=== PATIENT | female | born 1940 | race Caucasian/White ===

== ENCOUNTER 2019-06-02 13:54 | Inpatient (IN) ==
--- NOTE | 2019-06-02 15:51 | Diag Imaging Result Doc PS360 ---
EXAM: CHEST-1 VIEW INDICATION: COUGH WITH POSSIBLE PNA TECHNIQUE: One view COMPARISON: 05/27/2019 FINDINGS: The lungs are grossly clear. There is no discrete pleural fluid collection or pneumothorax. There is stable cardiomegaly. The central vasculature is perhaps mildly prominent suggesting possible mild pulmonary venous congestion. IMPRESSION: Cardiomegaly and mildly prominent central vasculature suggesting possible mild pulmonary venous congestion. No definite acute pathology, otherwise. Electronically signed by Chintan Avelar 06/02/2019 3:49 PM
--- NOTE | 2019-06-02 16:07 | EKG Report ---
Test Performed on : 06/02/2019 2:35:50 PM Test Reason : irregular rythm Blood Pressure : / mmHG Vent. Rate : 066 BPM Atrial Rate : 066 BPM P-R Int : 246 ms QRS Dur : 130 ms QT Int : 428 ms P-R-T Axes : 032 210 041 degrees QTc Int : 448 ms Sinus rhythm. with 1st degree AV block. Right superior axis deviation Nonspecific intraventricular block Abnormal ECG When compared with ECG of 23-APR-2012 11:05, premature atrial complexes. are no longer present DE interval has increased Questionable change in QRS duration Unconfirmed Result
[2019-06-02 16:16] LABS: BASO# 0.01 X1000 (0.0-0.2); BASO% 0.1 % (0.0-0.8); EOS# 0.22 X1000 (0.0-0.7); EOS% 3.2 % (0.0-10.0); HEMATOCRIT 34.1 % (37.0-47.0); HEMOGLOBIN 10.7 g/dL (12.0-16.0); IMM GRAN# 0.04 X1000 (0.0-0.04); IMM GRAN% 0.6 % (0.0-0.5); LYMPH% 7.4 % (20.5-51.1); MCH 30.2 PG (27-31); MCHC 31.4 g/dL (33-37); MCV 96.3 FL (81-99); MONO# 0.47 X1000 (0.11-0.59); MONO% 6.9 % (1.7-9.3); MPV 9.7 FL (7.4-10.4); NEUT# 5.56 X1000 (1.4-6.5); NEUT% 81.8 % (42.2-75.2); PLT 216 X1000 (130-400); RBC 3.54 XMIL (4.2-5.4); RDW 12.5 % (11.5-14.5)
[2019-06-02 16:37] LABS: ALB/GLOB RATIO 1.3; ALBUMIN 3.6 g/dL (3.5-5.0); CALCIUM 8.8 mg/dL (8.8-10.2); CREATININE 1.6 mg/dL (0.5-0.9); POTASSIUM 4.6 mmol/L (3.5-5.1); TOTAL BILIRUBIN 0.29 mg/dL (0.20-1.00); TOTAL PROTEIN 6.4 g/dL (6.3-8.3)
--- NOTE | 2019-06-02 21:57 | PROVIDER DOCUMENTATION ---
This chart was entered by Kami Avelar Scribe, acting as scribe for Lorin Tamez MD. HPI-Respiratory General - General Chief Complaint: Shortness of Breath Stated Complaint: IRREGULAR BP Time Seen by Provider: 06/02/19 20:02 Source: patient Allergies/Adverse Reactions: Patient Allergies Allergy/AdvReac Type Severity Reaction Status Date / Time ciprofloxacin [From Cipro] Allergy Unknown Verified 06/02/19 23:58 nitrofurantoin Allergy Unknown Verified 06/02/19 23:58 [From Macrobid] Home Medications: Home Medication List Medication Instructions Recorded Confirmed Last Taken Type Apixaban [Eliquis] 5 mg PO BID 06/02/19 06/02/19 06/01/19 08:00 History CefDINIR [Omnicef] 300 mg PO DAILY 06/02/19 06/02/19 Unknown History Estradiol 10 mcg VAG ORDERED 06/02/19 06/02/19 Unknown History Flecainide Acetate 100 mg PO BID 06/02/19 06/02/19 06/01/19 08:00 History Fluconazole [Diflucan] 150 mg PO DAILY 06/02/19 06/02/19 Unknown History Levothyroxine Sodium 50 mg PO DAILY 06/02/19 06/02/19 Unknown History Losartan/Hctz [Hyzaar 100/12.5 mg 1 tab PO DAILY 06/02/19 06/02/19 Unknown History Tab] Metformin E.r. [Glucophage Xr] 500 mg PO DAILY 06/02/19 06/02/19 Unknown History Montelukast Sodium 10 mg PO DAILY 06/02/19 06/02/19 Unknown History Omeprazole 20 mg PO DAILY 06/02/19 06/02/19 Unknown History Pravastatin Sodium 40 mg PO DAILY 06/02/19 06/02/19 Unknown History Sertraline HCl 50 mg PO DAILY 06/02/19 06/02/19 Unknown History Spironolactone 25 mg PO DAILY 06/02/19 06/02/19 Unknown History Mirabegron [Myrbetriq] 25 mg PO DAILY 06/03/19 06/03/19 06/02/19 History - History of Present Illness-Resp Nature of Presenting Problem: 78 yof c/o cough, runny nose, postnasal drainage, nausea, headache and sob. pt sts is sob intermittent for years but has become worse in last week. pt has been going to dr mondays and tuesdays to receive antibiotic shots. pt sts was sick with similar symptoms in february. pt is afebrile, denies v/d, and cp. Severity in ED: reports: mild Onset/Duration: reports: 1 week ago Timing: reports: still present Exposure: reports: unknown cause Cough Quality/Degree: reports: moderate, productive cough Review of Systems - Adult - REVIEW OF SYSTEMS - ADULT Constitutional: reports: no symptoms reported. denies: chills, fever, fatique Eyes: reports: no symptoms reported Ears, Nose, Mouth & Throat: reports: see HPI, sinus problem (runny nose intermittent, post nasal drainage). denies: ear discharge, ear pain, epistaxis, throat pain, throat swelling Cardiovascular: reports: no symptoms reported. denies: chest pain, edema, ortho pnea, palpitations Respiratory: reports: see HPI, cough, excessive sputum production, shortness of breath, other (tachypnea). denies: hemoptysis, pleurisy, wheezing Gastrointestinal: reports: see HPI, nausea. denies: abdominal pain, diarrhea, vomiting Genitourinary: reports: no symptoms reported Musculoskeletal: reports: no symptoms reported Integumentary: reports: no symptoms reported Neurological: reports: see HPI, headache/migraines. denies: ataxia, dizziness/vertigo, seizure Psychiatric: reports: no symptoms reported Endocrine: reports: no symptoms reported Hematologic/Lymphatic: reports: no symptoms reported Allergic/Immunologic: reports: no symptoms reported All Other Systems: Reviewed and Negative Past History - Adult - PAST MEDICAL HISTORY-ADULT Review of Records: reports: Old Records Reviewed, Nursing Assessment Review, Al dications Reviewed, Social history reviewed & non-contributory. Major Childhood Illnesses: reports: denies history Cardiovascular: reports: HTN, other (loop recorder) Respiratory: reports: denies history Gastrointestinal: reports: GERD Obstetrical/Gynecological: reports: denies history Genitourinary: reports: denies history Musculoskeletal: reports: denies history Neurological: reports: denies history Endocrine/Immune: reports: Diabetes Diabetes Type: Type 2 Other Conditions: reports: denies history - PRIOR SURGERIES/PROCEDURES Surgical/Procedure History: reports: cholecystectomy, , joint replacement (tk) - IMMUNIZATION STATUS Childhood Immunizations: See Nurse Assessment Flu Vaccine: See Nurse Assessment - FAMILY HISTORY Family History: reviewed, not pertinent - SOCIAL HISTORY Smoking: non-smoker Substance Use: none/never Physical Exam-General - PHYSICAL EXAM-ADULT Initial Vital Signs Reviewed: Yes - CONSTITUTIONAL General Appearance: appears well, alert, no apparent distress, obese. negative: lethargic, slow to respond, obtunded - EYES Eyes: PERRL/EOMI, pink conjunctivae - HEAD, EARS, NOSE, MOUTH & THROAT HENMT: normocephalic/atraumatic, moist mucous membranes, normal ENT inspection, TMs normal, pharynx normal, other (sinus tenderness to palp bilat). negative: pharyngeal erythema, tonsillar exudate - NECK Neck: non-tender, full range of motion, supple, normal inspection - RESPIRATORY Respiratory: chest non-tender, lungs clear, normal breath sounds, no pleuratic chest pain, no respiratory distress, no accessory muscle use. negative: respiratory distress, decreased breath sounds, accessory muscle use, wheezing - CARDIOVASCULAR Cardiovascular: normal peripheral pulses, regular rate, rhythm - GASTROINTESTINAL (ABDOMEN) Abdominal Exam: normal bowel sounds, non tender, soft, no organomegaly, no pulsatile mass. negative: rigid, rebound, tenderness - LYMPHATIC Lymphatic: no adenopathy - MUSCULOSKELETAL Back Exam: normal inspection, no CVA tenderness, no vertebral tenderness Extremity: normal range of motion, non-tender, normal gait, normal inspection Peripheral Pulses: radial (R): 2+, radial (L): 2+ - SKIN Integumentary: normal color, normal turgor, warm/dry - NEUROLOGIC Neurologic: grossly normal, no motor/sensory deficits - PSYCHIATRIC Psych/Mental Status: normal mood/affect, normal thought content, normal thought process, oriented x 3 Progress - PLAN OF CARE/RESULTS Progress/Plan/Lab Results: Orders Category Date Time Status Admit - [facility] Routine AdmDCTranf 06/02/19 23:53 Active Activity - Up with Assistance ORDERED Care 06/02/19 23:53 Active Apply Mechanical Device [QM] ORDERED Care 06/02/19 23:53 Active Intake and Output-Strict ORDERED Care 06/02/19 23:53 Active Use ED:PneumoniaAdultSet As Ordered Care 06/02/19 14:47 Completed Vital Signs Order Q 8-HR ASSESS Care 06/02/19 23:53 Active Z-Document. for Tele Applied ORDERED Care 06/02/19 23:53 Completed Heart Healthy Diet Diet 06/02/19 23:54 Active CHEST-1 VIEW [RAD] Stat Exams 06/02/19 14:47 Completed BASIC METABOLIC PANEL [CHEM] Routine Lab 06/03/19 06:40 Completed BLOOD CULTURE [BLDCUL] Stat Lab 06/02/19 16:30 Results CBC WITH DIFF [HEME] Routine Lab 06/03/19 06:40 Completed CBC WITH ELECTRONIC DIFF [HEME] Stat Lab 06/02/19 15:13 Completed COMPREHENSIVE METABOLIC PANEL [CHEM] Stat Lab 06/02/19 15:13 Completed Cardiac Profile [CK PROFILE] [SP CHEM] Stat Lab 06/02/19 21:05 Completed LACTATE, PLASMA [CHEM] Stat Lab 06/02/19 16:30 Completed PRO B-NATRIURETIC PEPTIDE Stat Lab 06/02/19 21:25 Completed TROPONIN T Stat Lab 06/02/19 21:25 Completed Furosemide [Lasix] Med 06/02/19 23:03 Discontinued 40 mg IV NOW ONE Furosemide [Lasix] Med 06/03/19 11:00 Discontinued 40 mg IV Q12H Ondansetron [Zofran] Med 06/02/19 23:53 Active 4 mg IV Q4H PRN PRN Telemetry [OM.EQ] Routine Oth 06/02/19 23:53 Active EKG [EKG] Stat Ther 06/02/19 14:32 Draft Echo Spec/Color Doppler Routine Ther 06/02/19 23:53 Draft Transfer/Admit Order [TRANSFER] Routine Transfer 06/02/19 23:18 Completed Result Diagrams: 06/03/19 06:40 06/03/19 06:40 - EKG 1 Time of EKG reading by physician:: 14:35 EKG Read and Signed by:: Augusto Vu EKG Interpretation (*Must complete 3 of following elements*): Abnormal Rate: 66 Rhythm: SR w/1st degree AV block [place]: right (right superior) QRS: normal [place] Interval: prolonged ST Wave: normal Comments: nonspecific intraventricular block - XRAY 1 XRAY Study: Chest Impression: Abnormal, See EMR Report ( EXAM: CHEST-1 VIEW INDICATION: COUGH WITH POSSIBLE PNA TECHNIQUE: One view COMPARISON: 05/27/2019 FINDINGS: The lungs are grossly clear. There is no discrete pleural fluid collection or pneumothorax. There is stable cardiomegaly. The central vasculature is perhaps mildly prominent suggesting possible mild pulmonary venous congestion. IMPRESSION: Cardiomegaly and mildly prominent central vasculature suggesting possible mild pulmonary venous congestion. No definite acute pathology, otherwise. Electronically signed by Chintan Avelar 06/02/2019 3:49 PM) - CONSULTS/PCP/HOSPITALIST Notification #1 *Consult/PCP/Hospitalist*: Dr. Lizama/ hospitalist Time Discussed: 23:00 Consult Disposition: Admit Departure - Departure Date of Disposition Decision: 06/03/19 Time of Disposition Decision: 00:10 DIAGNOSIS: Dyspnea, CHF (congestive heart failure) Disposition: ADMITTED INPATIENT Certified Medical Emergency: Emergent Condition: Stable - Critical Care Note This patient required my direct & personal management of CC.: No Attestation - Physician/ FABIENNE Attestation Patient care was provided by Advanced Practice Provider:: No The physician spent face to face time with patient:: Yes Advanced Practice Provider documentation review:: Supervising physician onsite and consulted in the evaluation and care of this patient. The physician did have a face to face encounter with the patient. This chart was documented by the indicated scribe, (Kami Avelar, [place]) and accurately reflects the services I performed and decisions made by me, Lorin Tamez MD, as attested by the provider's signature.
[2019-06-02] MEDS ORDERED: LASIX IV ONE (23:03)
[2019-06-03] MEDS: ELIQUIS PO SCH ×3 (01:20→21:49)
[2019-06-03 01:24] LABS: URINE SOURCE CLEAN CATCH
[2019-06-03 02:20] LABS: BILIRUBIN URINE NEGATIVE (NEGATIVE); BLOOD URINE SMALL (NEGATIVE); COLOR STRAW; GLUCOSE URINE NEGATIVE (NEGATIVE); KETONE URINE NEGATIVE (NEGATIVE); LEUKOCYTES URINE NEGATIVE (NEGATIVE); NITRITE URINE NEGATIVE (NEGATIVE); PROTEIN URINE NEGATIVE (NEGATIVE); SP GRAVITY URINE 1.007; TURBIDITY URINE CLEAR (CLEAR); UR EPITHELIAL CELLS <10 /HPF (<10); URINE BACTERIA NEGATIVE /HPF; URINE RBC <10 /HPF (<10); URINE WBC <10 /HPF (<10); UROBILINOGEN URINE NORMAL (NORMAL)
--- NOTE | 2019-06-03 03:33 | EKG Report ---
Test Performed on : 06/02/2019 8:37:11 PM Test Reason : CP Blood Pressure : / mmHG Vent. Rate : 062 BPM Atrial Rate : 062 BPM P-R Int : 216 ms QRS Dur : 114 ms QT Int : 416 ms P-R-T Axes : 101 -13 063 degrees QTc Int : 422 ms Sinus rhythm. with 1st degree AV block. Otherwise normal ECG When compared with ECG of 02-JUN-2019 14:35, (Unconfirmed) Questionable change in QRS duration Unconfirmed Result
[2019-06-03] MEDS: HUMULIN R SUBQ SCH ×4 (06:01→21:50)
--- NOTE | 2019-06-03 06:09 | HISTORY AND PHYSICAL ---
PRIMARY CARE PHYSICIAN: Dr. Campos. CHIEF COMPLAINT: Cough and shortness of breath times several days. HISTORY OF PRESENTING ILLNESS: An 78-year-old female with a history of hypertension, atrial fibrillation diabetes mellitus type 2, and hyperlipidemia, who had presented to emergency department with several days history of worsening shortness of breath. The patient states that she was coughing and not feeling well. She states that with mild exertion she was having difficulty breathing. She apparently was treated for pneumonia not too long ago, however, she stated that she did not have any improvement. The patient was evaluated in the emergency department. She was found to be in heart failure. She was given IV Lasix and she had some improvement. Due to her presenting symptoms, she will require admission for further management. At the time of my examination, patient denied any headache, fever, chills, chest pain, hemoptysis, or melena, but complained of cough and shortness of breath. PAST MEDICAL HISTORY: Includes hypertension, atrial fibrillation, diabetes mellitus type 2, and hyperlipidemia. PAST SURGICAL HISTORY: She has a loop recorder, back surgery, bilateral carpal tunnel surgery, bilateral knee surgery, and cholecystectomy. ALLERGIES: Cipro, Macrobid, codeine and several other medications she does not recall. CURRENT MEDICATIONS: 1. Eliquis 5 mg p.o. b.i.d. 2. Flecainide 100 mg p.o. b.i.d. 3. Losartan HCT 100/12.5 mg p.o. daily. 4. Metformin 500 mg p.o. daily. 5. Omeprazole 20 mg p.o. daily. 6. Pravastatin 40 mg p.o. daily. 7. Sertraline 50 mg p.o. daily. 8. Spironolactone 25 mg p.o. daily. 9. Synthroid 50 mcg p.o. daily. 10. Singular 10 mg p.o. daily. SOCIAL HISTORY: No history of smoking, alcohol or illicit drug use. FAMILY HISTORY: No history of coronary disease. REVIEW OF SYSTEMS: Fourteen point review of systems is as in HPI. Other systems negative. PHYSICAL EXAMINATION: GENERAL: Cooperative, friendly, and elderly female. She is resting more comfortably now. VITAL SIGNS: Temperature 98.2 degrees, pulse 66, respirations 20, and blood pressure 103/53. HEENT: Atraumatic, normocephalic. Extraocular movements intact. PERRLA. NECK: No masses. CHEST: Bibasilar rales. CARDIOVASCULAR: Regular rate and rhythm. ABDOMEN: Soft. Positive bowel sounds. EXTREMITIES: +1 edema. NEUROLOGIC: She is awake, alert, and oriented x3. : No bladder distention. SKIN: Warm. LABORATORIES AND STUDIES: WBC 6.80, hemoglobin 10.7, hematocrit 34.1, and platelets 216,000. Sodium 134, potassium 4.6, chloride 95, CO2 26, BUN is 25, creatinine 1.6, and glucose 126. ProBNP is 1419. Troponin 0.010. Chest x-ray shows cardiomegaly and central vascular congestion suggesting pulmonary congestion. ASSESSMENT: An 78-year-old elderly female with a history of hypertension, atrial fibrillation diabetes mellitus type 2 and hyperlipidemia, who presented to the emergency department with several days history of worsening shortness of breath. She was evaluated in the emergency department. She was found to be in heart failure. She will require admission for further management. 1. Acute congestive heart failure exacerbation, unspecified. 2. Diabetes mellitus type 2. 3. Chronic atrial fibrillation. 4. Hypertension. PLAN: 1. We will admit patient to medical floor with telemetry. 2. We will continue with gentle diuresis. 3. We will consult Cardiology. 4. Schedule echocardiogram. 5. Monitor blood glucose, and put patient on sliding scale insulin regimen. 6. We will restart patient's antiarrhythmic agents and Eliquis for atrial fibrillation. 7. Monitor blood pressure closely. Resume antihypertensive agent. 8. The patient is on Eliquis, and this will suffice for DVT prophylaxis also. 9. We will continue to follow and reassess. Make further recommendations based on patient's clinical course. cc: Sergio Lizama MD
[2019-06-03 07:15] LABS: BASO# 0.01 X1000 (0.0-0.2); BASO% 0.1 % (0.0-0.8); EOS# 0.19 X1000 (0.0-0.7); EOS% 2.8 % (0.0-10.0); HEMATOCRIT 34.2 % (37.0-47.0); HEMOGLOBIN 10.7 g/dL (12.0-16.0); IMM GRAN# 0.04 X1000 (0.0-0.04); IMM GRAN% 0.6 % (0.0-0.5); LYMPH# 0.49 X1000 (1.2-3.4); LYMPH% 7.3 % (20.5-51.1); MCH 29.9 PG (27-31); MCHC 31.3 g/dL (33-37); MCV 95.5 FL (81-99); MONO# 0.54 X1000 (0.11-0.59); MONO% 8.1 % (1.7-9.3); MPV 9.8 FL (7.4-10.4); NEUT# 5.42 X1000 (1.4-6.5); NEUT% 81.1 % (42.2-75.2); PLT 212 X1000 (130-400); RBC 3.58 XMIL (4.2-5.4); RDW 12.5 % (11.5-14.5); WBC 6.69 X1000 (4.8-10.8)
[2019-06-03 07:59] LABS: POTASSIUM 4.5 mmol/L (3.5-5.1)
[2019-06-03 08:00] LABS: CALCIUM 8.8 mg/dL (8.8-10.2); CREATININE 1.6 mg/dL (0.5-0.9)
[2019-06-03] MEDS ORDERED: LASIX IV SCH (11:00)
--- NOTE | 2019-06-03 13:34 | PROGRESS NOTE ---
DATE: 06/03/2019 SUBJECTIVE: This morning Ms. Martinez refers to be doing a little better. She has been having chronic cough associated with some shortness of breath for some time. Upon presenting to the emergency department, she was evaluated. She has been found to be mildly normocytic anemia associated with elevated creatinine and elevated pro B. OBJECTIVE: Vital Signs: Blood pressure is currently 121/48, pulse of 70, respirations is 15, and temperature 98.9 degrees. Patient was saturating 99% on room air. General: Ms. Martinez is an 78- year-old female. She is in bed in no distress. Mucosa is pink and moist. Anicteric. Acyanotic. Neck: Supple. Chest: Good air entry bilaterally with some distant fine crackles posteriorly. Cardiovascular: Regular rate and rhythm. I did not hear any murmurs. No JVD. GI: Abdomen is soft and nontender. Bowel sounds present. Extremities: No pedal edema. There are however, non blanching macular lesions in the lower extremities. LABORATORY DATA: Has been reviewed. Hemoglobin is 10.7. Rest of CBC is normal. Chemistry is also reviewed. Creatinine is 1.6. A chest x-ray which showed cardiomegaly with central vasculature consistent with pulmonary venous. ASSESSMENT: 1. Acute congestive heart failure exacerbation. 2. Diabetes mellitus. 3. Chronic atrial fibrillation currently rate controlled. 4. Hypertension. 5. Chronic cough of unclear etiology presumably related to pulmonary edema. However, etiologies need to be ruled out. We will do a CT scan of the chest to have a better anatomy of the lungs. 6. Renal failure, etiology and chronicity is unknown. We will get a renal ultrasound. cc: Narciso Hinton MD [facility]
--- NOTE | 2019-06-03 16:15 | Diag Imaging Result Doc PS360 ---
EXAM: CHEST-2 VIEWS HISTORY: cough TECHNIQUE: Chest two views COMPARISON: 06/02/2019 and 05/27/2019 FINDINGS: The lungs are well expanded. The heart is mildly enlarged. The vessels are not distended. There are mild increased markings adjacent to the left heart border which remain. There is been considerable improvement compared the prior studies. No pleural effusions. IMPRESSION: Interval improvement Electronically signed by Richardson Resendiz 06/03/2019 4:12 PM
--- NOTE | 2019-06-03 16:20 | CONSULTATION ---
DATE OF CONSULTATION: 06/03/2019 IMPRESSION: 1. Shortness of breath and cough. Etiology not entirely clear. She is presently without signs of pulmonary vascular congestion and is without shortness of breath lying flat on room air. She does have some few scattered wheezes. 2. Paroxysmal atrial fibrillation. She continues in sinus rhythm on flecainide. 3. Negative coronary angiography in 2008. 4. Hypertension. 5. Type 2 diabetes mellitus. 6. Asthma. RECOMMENDATIONS: 1. PA and lateral chest x-ray. 2. Limit diuresis. 3. Discontinue thiazide diuretic and start low-dose diltiazem as tolerated. 4. Follow up echocardiography. 5. Conservative cardiovascular management overall. HISTORY: This 78-year-old white female with past history of paroxysmal atrial fibrillation, asthma, hypertension, type 2 diabetes mellitus, hyperlipidemia and gastroesophageal reflux disease was admitted yesterday with cough and shortness of breath. She relates that she has actually been not feeling well for about 8 weeks or so. She describes symptoms of cough which has been minimally productive. She started to have some shortness of breath. She has been through a round of antibiotics but did not improve. Her symptoms worsened yesterday and she came to the emergency room for evaluation. There has been no chest pain. She had normal coronaries by coronary angiography in 2008 and had negative stress myocardial perfusion study in the spring of last year and echocardiography from the spring last year demonstrated normal left ventricular ejection fraction. PAST MEDICAL HISTORY: 1. Paroxysmal atrial fibrillation. 2. Hypertension. 3. Type 2 diabetes mellitus. 4. Hyperlipidemia. 5. Obstructive sleep apnea. 6. Asthma. 7. Hypothyroidism. 8. Gastroesophageal reflux disease. PAST SURGICAL HISTORY: Includes unspecified back surgery, bilateral carpal tunnel release, unspecified bilateral knee surgeries, cholecystectomy, and tubal ligation. ALLERGIES: She is allergic or intolerant of Cipro, Macrobid and codeine. MEDICATIONS PRIOR TO ADMISSION: As listed. SOCIAL HISTORY: She is and retired. She lives at home. She does not smoke or use alcohol. FAMILY HISTORY: Negative for premature coronary disease. REVIEW OF SYSTEMS: Pulmonary: Noteworthy for minimally productive cough as well as some wheezing and shortness of breath. Gastrointestinal: Negative. Constitutional: Negative. Remainder review of systems negative/noncontributory with 14 total systems reviewed. PHYSICAL EXAMINATION: General: This is a pleasant, older white female in no distress on room air. Vital signs: Blood pressure 100/55, heart rate 67 with ECG monitor showing sinus rhythm. HEENT: Extraocular movements appear intact. Mucous membranes moist. Neck: Supple. Jugular venous distention suggests normal central venous pressure. Auscultation chest reveals a few faint scattered expiratory wheezes. No rales could be appreciated. Cardiac: Reveals a regular rate and rhythm without appreciable murmur or gallop. Abdomen: Soft. Bowel sounds are normal. Extremities: Without edema. Neurologic: Reveals her to be alert and fully oriented. Speech is fluent. Moves all 4 extremities equally well. Skin: Warm, dry. Psychiatric: Reveals mood to be appropriate. DATA: A 12 lead EKG demonstrates sinus rhythm with first degree AV block, right superior axis deviation and nonspecific interventricular conduction delay. LABORATORY DATA: Includes a sodium 136, potassium 4.6, chloride 96, carbon dioxide 24, BUN 26, creatinine 1.6, glucose 114. CPK 40, troponin T less than 0.01. Pro B-natriuretic peptide level 1419. White blood cell count 6.7, hematocrit 34.2, hemoglobin 10.7, platelet count 212,000. cc: Catarino Beverly MD
--- NOTE | 2019-06-03 16:27 | Diag Imaging Result Doc PS360 ---
EXAM: US RENAL 2 (RETROPER) COMPLETE HISTORY: lorie/arf TECHNIQUE: Renal ultrasound COMPARISON: None. FINDINGS: The right kidney measures 9.9 x 3.7 x 4.6 cm. Normal renal echotexture and cortical thickness. No stone or hydronephrosis. No renal mass. The left kidney measures 9.7 x 4.7 x 5.4 cm. Normal renal echotexture and cortical thickness. No renal stone. No hydronephrosis. The urinary bladder is moderately distended and appears normal. Prevoid bladder volume is 121 cc. IMPRESSION: No abnormality identified Electronically signed by Richardson Resendiz 06/03/2019 4:25 PM
--- NOTE | 2019-06-03 16:29 | Diag Imaging Result Doc PS360 ---
EXAM: CT THORAX W/O CONTRAST INDICATION: SOB with chronic cough TECHNIQUE: This exam was performed using automated exposure control, adjustment of mA or kV according to patient size, and/or use of iterative reconstruction technique. COMPARISON: None. FINDINGS: There are focal airspace consolidations involving the left lower lobe at the base, the lingula, and a tiny airspace consolidation involving the right lower lobe consistent with pneumonia. There is no pleural fluid collection and no pneumothorax. There are small shotty mediastinal lymph nodes that are probably reactive. There is no cardiomegaly. Limited views of the upper abdomen are essentially unremarkable. IMPRESSION: Multilobar pneumonia that is worst on the left as described. Electronically signed by Chintan Avelar 06/03/2019 4:27 PM
[2019-06-03] MEDS: ROCEPHIN 1 GM in NS 50 ML IV SCH (18:24)
[2019-06-03] MEDS ORDERED: NS 250 ML ONE (18:34)
[2019-06-03] MEDS: ZITHROMAX 500 MG/NS 500 MG/250 ML IVPB IV SCH (18:59)
--- NOTE | 2019-06-03 19:12 | ECHO REPORT ---
ORDER DATE: 06/02/2019 INDICATION: An 78-year-old female with CHF. REQUESTING PHYSICIAN: Dr. Sergio Lizama. M-MODE MEASUREMENTS: Left ventricle end diastole: 4.7. Left ventricle end systole: 2.6. Posterior wall: 0.9. Interventricular septum: 1.0. Left atrium: 4.2. Aortic diameter: 3.4. SUMMARY OF 2-DIMENSIONAL IMAGIN. Left ventricular function is normal. Ejection fraction appears to be on the order of 65%. There is no wall motion abnormality noted. 2. The right ventricle appears to be grossly normal. 3. The aortic valve has 3 cusps. They open normally. Color flow mapping is unremarkable. 4. The mitral valve shows a mild degree of regurgitation. 5. Pulsed wave Doppler of mitral inflow is normal. 6. Tissue Doppler of septal and lateral mitral annulus averages 6 cm. 7. There is no definite diastolic dysfunction. 8. The left atrium appears to be moderately enlarged. 9. The right atrium is normal. 10.The tricuspid valve shows a mild degree of regurgitation. Pulmonary pressure is estimated at 41 mmHg. 11.The pulmonic valve is grossly unremarkable. 12.There is no pericardial effusion. No mass, no thrombus. SUMMARY: This study shows: 1. Normal left ventricular systolic function. 2. No diastolic dysfunction. 3. Moderately enlarged left atrium. 4. Pulmonary pressure 41 mmHg. 5. Unremarkable aortic valve. Clinical correlation recommended. cc: MD Sergio Caro MD
[2019-06-04 07:24] LABS: BASO# 0.01 X1000 (0.0-0.2); BASO% 0.1 % (0.0-0.8); EOS# 0.26 X1000 (0.0-0.7); EOS% 3.4 % (0.0-10.0); HEMOGLOBIN 10.7 g/dL (12.0-16.0); IMM GRAN# 0.03 X1000 (0.0-0.04); IMM GRAN% 0.4 % (0.0-0.5); LYMPH# 0.63 X1000 (1.2-3.4); LYMPH% 8.3 % (20.5-51.1); MCH 29.9 PG (27-31); MCHC 31.5 g/dL (33-37); MONO# 0.39 X1000 (0.11-0.59); MONO% 5.1 % (1.7-9.3); MPV 9.6 FL (7.4-10.4); NEUT% 82.7 % (42.2-75.2); PLT 214 X1000 (130-400); RBC 3.58 XMIL (4.2-5.4); RDW 12.4 % (11.5-14.5); WBC 7.62 X1000 (4.8-10.8)
[2019-06-04 07:37] LABS: ALBUMIN 3.5 g/dL (3.5-5.0); CALCIUM 8.5 mg/dL (8.8-10.2); CREATININE 1.8 mg/dL (0.5-0.9); PHOSPHORUS 3.9 mg/dL (2.7-4.5); POTASSIUM 4.2 mmol/L (3.5-5.1)
[2019-06-04] MEDS: HUMULIN R SUBQ SCH ×4 (07:49→21:35)
[2019-06-04] MEDS ORDERED: LASIX LIQUID PO SCH (09:00)
[2019-06-04] MEDS: ELIQUIS PO SCH ×2 (09:02→21:21)
[2019-06-04] MEDS ORDERED: DUONEB (A & A) INH SCH (16:00)
--- NOTE | 2019-06-04 16:51 | CARDIOLOGY PROGRESS NOTE ---
DATE: 06/04/2019 SUBJECTIVE: Patient continues with some cough and wheezing. She is without shortness of breath, lying flat in bed on room air. She has coughed up a scant amount of blood-tinged sputum. OBJECTIVE: Blood pressure 120/51, heart rate 64, oxygen saturation 98% on room air. There is no significant jugular venous distention. Auscultation of the chest reveals a few scant expiratory wheezes, but otherwise clear. Cardiac exam was a regular rate and rhythm without appreciable murmur, rub, or gallop. There is no evidence of peripheral edema. DIAGNOSTIC STUDIES: PA and lateral chest x-ray performed yesterday afternoon demonstrates no evidence of pulmonary edema. There is increased markings adjacent to the left heart border, which were felt to represent possible pneumonia. Chest CT scan reports multilobar pneumonia, worse on the left. Laboratory data includes a white blood cell count of 7.62, hematocrit 34.0, hemoglobin 10.7, platelet count 214,000. Sodium 137, potassium 4.2, chloride 98, carbon dioxide 25, BUN 29 creatinine 1.8, glucose 124. Echocardiography reports normal left ventricular function. There was mild mitral regurgitation. There was mild tricuspid regurgitation with mild pulmonary hypertension by Doppler. IMPRESSION: 1. Recent dyspnea symptoms and cough. Suspect more likely a pulmonary infectious process, as suggested by chest x-ray and chest CT scan. Doubt congestive heart failure in light of radiographic findings and echocardiography. 2. Paroxysmal atrial fibrillation. Patient continues in sinus rhythm on flecainide. 3. Negative coronary angiography in 2008. 4. Hypertension. 5. Type 2 diabetes mellitus. 6. History of asthma. RECOMMENDATIONS: 1. No additional diuresis. 2. Continue low-dose diltiazem and flecainide. 3. Continue long-term anticoagulation with Eliquis as tolerated. 4. Given apparent noncardiac process, I will see patient further on an as-needed basis. cc: Catarino Beverly MD
--- NOTE | 2019-06-04 17:27 | PROGRESS NOTE ---
DATE: 06/04/2019 SUBJECTIVE: This morning, Ms. Martinez refers to be doing a lot better. She still has some residual cough, but it is nonproductive. OBJECTIVE: Vital signs: Blood pressure is 120/51, pulse of 64, respiration is 20, temperature is 98.0 degrees. General: Ms. Martinez is an 78-year-old female. She is in bed. No seemingly distress. HEENT: Mucosa is pink and moist. Anicteric. Acyanotic. Neck: Supple. Chest: Good air entry bilateral. There is some dry crackles in the posterior lung doss bilateral, more to the left side than the right. Cardiovascular: Regular rate and rhythm. No murmurs, no rubs, no gallops. Gastrointestinal: Abdomen is soft, nontender. Bowel sounds present. Extremities: No pedal edema. Central Nervous System: Patient is awake, alert, oriented. There is no focal neurological deficit. DIAGNOSTIC STUDIES: WBC 7.62, hemoglobin is 10.7, platelet count of 214,000. Chemistry is also reviewed; creatinine is up to 1.3. Sedimentation rate was minimally elevated. A CT scan of the chest shows a multilobar pneumonia that is worse in the left. ASSESSMENT: 1. Dyspnea on presentation secondary to multifocal pneumonia. 2. Multilobar pneumonia on the left side. The patient is currently on IV antimicrobial therapy. 3. Chronic atrial fibrillation, currently rate controlled. Patient is on flecainide and Cardizem. 4. Chronic cough that has been worsened by current pneumonia. The patient will need to be evaluated on an outpatient basis for this once the pneumonia is cleared. For now, we will withhold any medication with that potential cough side effect including an OMARI/possible ARBs. We will also treat the patient for GERD and get her to do PFTs and see a skewer up on outpatient. 5. Chronic kidney disease, stage 3B. Creatinine has slightly worsened today. I think that was because of the Lasix that has been discontinued. In general, I think Ms. Martinez is doing a lot better. We are going to continue with the current antimicrobial. We will do the strep urine and Legionella urine antigens. We will get an incentive spirometer and p.r.n. nebulizations. Continue with the IV antimicrobials and re- evaluate her tomorrow morning. cc: Narciso Hinton MD
[2019-06-04] MEDS: ROCEPHIN 1 GM in NS 50 ML IV SCH (17:47)
[2019-06-04] MEDS ORDERED: NS NEB INH SCH (18:00)
--- NOTE | 2019-06-04 18:14 | EKG Report ---
Test Performed on : 06/04/2019 5:54:52 PM Test Reason : elevate heart rate Blood Pressure : / mmHG Vent. Rate : 129 BPM Atrial Rate : 129 BPM P-R Int : 136 ms QRS Dur : 122 ms QT Int : 354 ms P-R-T Axes : 036 -33 087 degrees QTc Int : 518 ms Sinus tachycardia. Left axis deviation Nonspecific intraventricular conduction delay Nonspecific ST abnormality Abnormal ECG When compared with ECG of 02-JUN-2019 20:37, (Unconfirmed) RI interval has decreased Vent. rate has increased BY [address] now depressed in Lateral leads Confirmed by Audra Maravilla MD ([id number]) on 06/08/2019 9:30:56 PM
--- NOTE | 2019-06-04 18:23 | EKG Report ---
Test Performed on : 06/04/2019 6:09:39 PM Test Reason : irregular heart rhythm Blood Pressure : / mmHG Vent. Rate : 114 BPM Atrial Rate : 159 BPM P-R Int : 000 ms QRS Dur : 118 ms QT Int : 354 ms P-R-T Axes : 000 -07 061 degrees QTc Int : 487 ms Atrial fibrillation. with rapid ventricular response. Incomplete left bundle branch block Abnormal ECG When compared with ECG of 04-JUN-2019 17:54, (Unconfirmed) Atrial fibrillation. has replaced Sinus rhythm. Incomplete left bundle branch block has replaced Nonspecific intraventricular conduction delay Confirmed by Taiwo ARORA, MFrance Severino ([id number]) on 06/08/2019 9:30:57 PM
[2019-06-04] MEDS: ZITHROMAX 500 MG/NS 500 MG/250 ML IVPB IV SCH (18:26)
[2019-06-04] MEDS ORDERED: CARDIZEM IV ONE (18:38)
[2019-06-04] MEDS: ZOFRAN IV PRN (18:39)
[2019-06-04] MEDS: XOPENEX NEB INH SCH ×2 (19:43→23:45)
[2019-06-04] MEDS: TAMBOCOR PO SCH (21:21)
[2019-06-04] MEDS: CARDIZEM 125 MG in NS 100 ML IV SCH (21:34)
[2019-06-05] MEDS: XOPENEX NEB INH SCH ×5 (03:35→19:26)
[2019-06-05 06:02] LABS: BASO# 0.01 X1000 (0.0-0.2); BASO% 0.1 % (0.0-0.8); EOS# 0.22 X1000 (0.0-0.7); EOS% 2.8 % (0.0-10.0); HEMATOCRIT 34.6 % (37.0-47.0); HEMOGLOBIN 11.1 g/dL (12.0-16.0); IMM GRAN# 0.04 X1000 (0.0-0.04); IMM GRAN% 0.5 % (0.0-0.5); LYMPH# 0.59 X1000 (1.2-3.4); LYMPH% 7.4 % (20.5-51.1); MCH 30.4 PG (27-31); MCHC 32.1 g/dL (33-37); MCV 94.8 FL (81-99); MONO# 0.43 X1000 (0.11-0.59); MONO% 5.4 % (1.7-9.3); MPV 10.1 FL (7.4-10.4); NEUT% 83.8 % (42.2-75.2); PLT 225 X1000 (130-400); RBC 3.65 XMIL (4.2-5.4); RDW 12.5 % (11.5-14.5); WBC 7.99 X1000 (4.8-10.8)
[2019-06-05] MEDS: HUMULIN R SUBQ SCH ×4 (06:04→21:38)
[2019-06-05 06:35] LABS: ALB/GLOB RATIO 1.3; ALBUMIN 3.5 g/dL (3.5-5.0); CALCIUM 8.3 mg/dL (8.8-10.2); CREATININE 1.9 mg/dL (0.5-0.9); MAGNESIUM 1.8 mg/dL (1.5-2.7); PHOSPHORUS 4.4 mg/dL (2.7-4.5); TOTAL BILIRUBIN 0.26 mg/dL (0.20-1.00); TOTAL PROTEIN 6.2 g/dL (6.3-8.3)
[2019-06-05] MEDS: CARDIZEM CD PO SCH (08:17)
[2019-06-05] MEDS: TAMBOCOR PO SCH ×2 (08:17→21:38)
[2019-06-05] MEDS: ELIQUIS PO SCH ×2 (08:17→21:38)
[2019-06-05] MEDS: CARDIZEM 125 MG in NS 100 ML IV SCH (10:03)
[2019-06-05 12:09] LABS: UR CREAT RANDOM 177.7 mg/dL (11-20)
[2019-06-05] MEDS: NS 1,000 ML IV SCH (13:45)
[2019-06-05] MEDS: TYLENOL PO PRN (13:51)
--- NOTE | 2019-06-05 13:59 | NEPHROLOGY CONSULTATION ---
DATE: 06/05/2019 REASON FOR ADMISSION: Cough with shortness of breath. REASON FOR CONSULT: Worsening renal function. CONSULTING PHYSICIAN: Dr. Hinton. HISTORY OF PRESENT ILLNESS: Ms. Martinez is an 78-year-old, white female who has known hypertension, chronic atrial fibrillation with anticoagulation therapy, diabetes mellitus type 2 with known chronic renal insufficiency. The patient states that she had increased work of breathing for several days. Presented to Dr. Barahona's office, who is covering for Dr. Campos, on Sunday. The patient was known to have difficulty breathing. Denied any chest pain. She was treated for pneumonia and he felt that this was not improved. He sent her for evaluation to [facility]. It was thought initially that she was in heart failure. She was given IV Lasix. She did indicate some improvement. She was transferred to [facility] for monitoring. With her chronic atrial fibrillation, she remains on Eliquis and flecainide. The patient continued to have increased work of breathing. She had a chest CT indicating that she has multilobular pneumonia, greater on the left than right. She also had an echocardiogram completed indicating an ejection fraction of 65%. Cardiology has been on board. [place] that this is more related to a pulmonary infection process versus congestive heart failure. She is currently off her Lasix. It is noted that she has not been eating and drinking well. Her creatinine on admission was 1.6. Creatinine is up to 1.9 today. She has had urine output, though she states that it has not been documented well because she has been incontinent at times. PAST MEDICAL HISTORY: Chronic atrial fibrillation and patient is on chronic anticoagulation, hypertension, diabetes mellitus type 2, hyperlipidemia, previously told of kidney disease (unaware of staging), previous history of pneumonia earlier in the year, history of congestive heart failure, hypothyroidism. PAST SURGICAL HISTORY: The patient has a loop recorder, back surgery, bilateral carpal tunnel surgery, bilateral knee surgery, and cholecystectomy. FAMILY HISTORY: Noncontributory to end-stage renal disease or chronic kidney disease. SOCIAL HISTORY: She is . Her is at her bedside. No history of tobacco, alcohol, or illicit drug use. ALLERGIES: Listed as Cipro, Macrobid, codeine, unsure of several others. CURRENT MEDICATIONS: Eliquis, flecainide, losartan, hydrochlorothiazide, metformin, omeprazole, pravastatin, sertraline, spironolactone, Synthroid, Singulair. REVIEW OF SYSTEMS: Times 10 with pertinent positives listed above in the HPI. MOST RECENT VITAL SIGNS: Temperature 98.1 degrees, blood pressure 116/65, heart rate is 88, her respirations are 18. She is currently on 2 L nasal cannula. Last recorded saturation is 99%. She has had 986 in and 100 mL out to void. We will order a bladder scan. LABORATORY DATA: Sodium is 134, potassium 4, chloride is 95, CO2 is 25, BUN 34, creatinine 1.9, glucose 139, her anion gap is 14, calcium 8.3, phosphorus 4.4, albumin 3.5. White count 7.99, hemoglobin 11.1, hematocrit 34.6, with a platelet count of 225,000. Blood cultures are negative. Renal ultrasound indicates the right kidney measuring 9.9 and left kidney measuring 9.7 with no hydronephrosis or mass. Urine electrolytes have been completed with findings of a fractionated sodium score FENA 0.26%. The patient is currently on Zithromax and Rocephin renally dosed. PHYSICAL EXAMINATION: General: This is an 78-year-old, white female resting quietly in bed. She appears chronically ill. No acute distress. Skin is warm and dry. HEENT: Normocephalic, atraumatic. Conjunctivae are pale pink. She has LISBETH. Mucous membranes are dry. Neck: Supple. Trachea midline. No evidence of JVD. Cardiovascular: Regular rate and rhythm. She has an S4. Lungs: Clear to auscultation bilaterally. Equal excursion. She has coarse breath sounds to the left lower lobe greater than right. Remains on O2 supplementation, equal excursion. Abdomen: Large, round, soft, nontender. Positive bowel sounds. Genitourinary: Not inspected. Extremities: The patient has had chronic 1+ lower extremity edema. No clubbing or cyanosis. Neurological: She is alert and oriented x3. She is a good historian. Integumentary: Skin is warm and dry without rashes or lesions. ASSESSMENT AND PLAN: 1. Acute kidney injury on known chronic renal insufficiency. The patient has a fractionated urea score of 0.26% indicating that she is prerenal, on the dry side. She has no intravenous fluids infusing. Renal ultrasound is stable with no hydronephrosis. We will have her bladder checked for a bladder scan to see if she has any residual urine not being put out secondary to her decreased urinary output. Otherwise, we will plan also to start normal saline at 50 mL an hour and re-evaluate the patient's labs in the morning. 2. Electrolytes, acid-base balance. These are stable. 3. Anemia. This is close to target. 4. Pneumonia. The patient is currently on renal dosed antibiotics of Rocephin and Zithromax. 5. Hypertension. This is stable. 6. Chronic atrial fibrillation with anticoagulation therapy. Followed by cardiology. I would like to thank you for allowing us to follow with this patient. Dictated by ROSALIND Giron for Davi Frances MD cc: ROSALIND Giron MD [facility]
[2019-06-05] MEDS: MIRALAX PO SCH ×2 (15:14→21:37)
[2019-06-05] MEDS ORDERED: MILK OF MAGNESIA PO ONE (15:17)
--- NOTE | 2019-06-05 15:19 | PROGRESS NOTE ---
DATE: 06/05/2019 SUBJECTIVE: This morning Ms. Martinez refers to be doing a whole lot better. No chest pain, no shortness of breath, and her cough seems to have been improving. OBJECTIVE: Vital signs: Blood pressure is 100/33, pulse of 88, respiration is 18, temperature is 98.1 degrees. Patient is saturating 96% on nasal cannula. General exam: Ms. Martinez is an 78-year- old elderly female. She is in bed, no distress. HEENT: Mucosa is pink and moist. Anicteric. Acyanotic. Neck: Supple. Chest: Good air entry bilateral. A few distant dry crackles. Cardiovascular: Irregularly irregular, but rate controlled. GI: Abdomen is soft, nontender. Bowel sounds present. Extremities: No pedal edema. CHILD CARE TEACHER: Patient is awake, alert and oriented. There is no focal neurological deficit. LABORATORY DATA: Has been reviewed. WBC 7.99, hemoglobin is 11.1, platelet count of 225. Chemistry is also reviewed. Sodium is 134, potassium is 4.0, chloride 95, creatinine went up to 1.9, glucose is fine. IMAGING STUDIES: None for today. An EKG yesterday did show atrial fibrillation with rapid ventricular response. ASSESSMENT: 1. Dyspnea on presentation secondary to congestive heart failure with preserved ejection fraction and multifocal pneumonia. 2. Multifocal pneumonia in the left lung. The patient is currently on intravenous antimicrobial therapy. 3. Chronic atrial fibrillation, which went into rapid ventricular response yesterday. The patient is currently on Cardizem drip. Her heart rate is now better. She is still on flecainide. Will continue to titrate the Cardizem off. 4. Chronic cough. 5. Acute on chronic kidney disease. The patient will be seen by Nephrology today. We will order the renal studies. cc: Narciso Hinton MD
[2019-06-05 16:00] LABS: URINE SOURCE CATH
[2019-06-05 16:03] LABS: BILIRUBIN URINE NEGATIVE (NEGATIVE); BLOOD URINE SMALL (NEGATIVE); COLOR YELLOW; GLUCOSE URINE NEGATIVE (NEGATIVE); KETONE URINE NEGATIVE (NEGATIVE); LEUKOCYTES URINE NEGATIVE (NEGATIVE); NITRITE URINE NEGATIVE (NEGATIVE); PROTEIN URINE TRACE mg/dL (NEGATIVE); SP GRAVITY URINE 1.017; TURBIDITY URINE CLEAR (CLEAR); UR EPITHELIAL CELLS <10 /HPF (<10); URINE BACTERIA NEGATIVE /HPF; URINE RBC <10 /HPF (<10); URINE WBC <10 /HPF (<10); UROBILINOGEN URINE NORMAL (NORMAL)
[2019-06-05] MEDS: ZITHROMAX 500 MG/NS 500 MG/250 ML IVPB IV SCH (16:52)
[2019-06-05] MEDS: ROCEPHIN 1 GM in NS 50 ML IV SCH (16:52)
[2019-06-06] MEDS: XOPENEX NEB INH SCH ×7 (00:02→23:09)
[2019-06-06] MEDS: TYLENOL PO PRN ×3 (00:15→16:32)
--- NOTE | 2019-06-06 00:19 | EKG Report ---
Test Performed on : 06/06/2019 00:00:44 AM Test Reason : Chest pain Blood Pressure : / mmHG Vent. Rate : 072 BPM Atrial Rate : 057 BPM P-R Int : 000 ms QRS Dur : 124 ms QT Int : 410 ms P-R-T Axes : 000 -16 064 degrees QTc Int : 448 ms Atrial fibrillation. Nonspecific intraventricular conduction delay Abnormal ECG When compared with ECG of 04-JUN-2019 18:09, (Unconfirmed) Vent. rate has decreased BY 42 BPM Nonspecific intraventricular conduction delay has replaced Incomplete left bundle branch block Confirmed by Taiwo ARORA, MFrance Severino ([id number]) on 06/08/2019 9:32:33 PM
[2019-06-06 06:05] LABS: ALBUMIN 3.4 g/dL (3.5-5.0); CREATININE 1.8 mg/dL (0.5-0.9); PHOSPHORUS 3.9 mg/dL (2.7-4.5); POTASSIUM 4.1 mmol/L (3.5-5.1)
[2019-06-06] MEDS: HUMULIN R SUBQ SCH ×4 (06:06→21:21)
[2019-06-06] MEDS ORDERED: DULCOLAX PR ONE (08:21)
[2019-06-06] MEDS: ELIQUIS PO SCH ×2 (09:03→21:21)
[2019-06-06] MEDS: NS 1,000 ML IV SCH (09:03)
[2019-06-06] MEDS: MIRALAX PO SCH ×2 (09:03→21:21)
[2019-06-06] MEDS: TAMBOCOR PO SCH ×2 (09:03→21:21)
[2019-06-06] MEDS: CARDIZEM CD PO SCH (09:03)
[2019-06-06] MEDS ORDERED: BENADRYL PO ONE (12:17)
--- NOTE | 2019-06-06 15:00 | PROGRESS NOTE ---
DATE: 06/06/2019 SUBJECTIVE: Ms. Martinez refers to be doing a whole lot better. No chest pain or shortness of breath. OBJECTIVE: Vital signs: Blood pressure is 110/65, pulse of 85, respirations 18, temperature 98.8 degrees. General: Ms. Martinez, 78-year-old elderly female. She is in bed. No distress. HEENT: Mucosa is pink and moist. Anicteric. Acyanotic. Neck: Supple. Chest: Good air entry bilateral. No crepitations. No rhonchi. Cardiovascular: Irregularly irregular but rate controlled. Abdomen: Soft, nontender. Bowel sounds present. Extremities: No pedal edema. Central Nervous System: The patient is awake, alert, oriented. Neurologic: There is no focal neurological deficit. LABORATORY DATA: Creatinine is 1.8. Glucose is 136. Bood cultures so far have been 48 hours negative. The patient's current antimicrobial therapy has all been reviewed. ASSESSMENT: 1. Dyspnea on presentation secondary to congestive heart failure with preserved ejection fraction and multifocal pneumonia. Patient is a lot better now. 2. Left lung multifocal pneumonia. Patient is on ceftriaxone and azithromycin. 3. Chronic atrial fibrillation. The patient went into rapid ventricular response yesterday, patient is back to regular rate. 4. Chronic cough, improved. 5. Acute on chronic kidney disease. Nephrology was consulted. Patient is currently on gentle IV fluids. Creatinine is down to 1.8 from 1.9 yesterday. 6. Chronic constipation. We will continue with bowel regimen. cc: Narciso Hinton MD
[2019-06-06] MEDS: ROCEPHIN 1 GM in NS 50 ML IV SCH ×2 (15:55→16:50)
[2019-06-06] MEDS: ZITHROMAX 500 MG/NS 500 MG/250 ML IVPB IV SCH ×2 (15:55→16:50)
[2019-06-06] MEDS ORDERED: ATARAX PO PRN (19:01)
--- NOTE | 2019-06-06 19:28 | NEPHROLOGY PROGRESS NOTE ---
DATE: 06/06/2019 SUBJECTIVE: Sitting up. No complaints. No shortness of breath, nausea, vomiting, etc. OBJECTIVE: Vital Signs: Blood pressure 118/53, heart rate 74, respirations 18, afebrile. General: No acute distress. Skin: Warm and dry. There is a rash on the left arm. Neck: Neck veins are not distended. Heart: Regular. No gallops. Lungs: Equal. No crackles. Abdomen: Soft, nontender. Bowel sounds present. Extremities: No edema, clubbing, or cyanosis. IMPRESSION: Acute kidney injury. Labs have been roughly stable since admission. We have no old data for comparison. Urine is bland. No changes. cc: Davi Frances MD
[2019-06-07] MEDS: XOPENEX NEB INH SCH ×6 (03:33→23:20)
[2019-06-07] MEDS: NS 1,000 ML IV SCH (04:52)
[2019-06-07 06:19] LABS: ALBUMIN 3.1 g/dL (3.5-5.0); CALCIUM 7.7 mg/dL (8.8-10.2); CREATININE 1.2 mg/dL (0.5-0.9); PHOSPHORUS 2.6 mg/dL (2.7-4.5); POTASSIUM 4.3 mmol/L (3.5-5.1)
[2019-06-07] MEDS: HUMULIN R SUBQ SCH ×4 (06:22→21:55)
[2019-06-07] MEDS: CARDIZEM CD PO SCH (08:17)
[2019-06-07] MEDS: MIRALAX PO SCH ×2 (08:17→21:52)
[2019-06-07] MEDS: TAMBOCOR PO SCH ×2 (08:17→21:51)
[2019-06-07] MEDS: ELIQUIS PO SCH ×2 (08:17→21:51)
[2019-06-07] MEDS: TYLENOL PO PRN ×2 (09:03→17:53)
[2019-06-07] MEDS ORDERED: LANOXIN PO ONE (10:45)
--- NOTE | 2019-06-07 14:01 | PROGRESS NOTE ---
DATE: 06/07/2019 SUBJECTIVE: This morning, Ms. Martinez refers to be doing okay. However, she continues to have some cough. OBJECTIVE: Vital signs: Blood pressure is 110/60, pulse of 97, respirations 16, temperature is 100.1 degrees. General: Ms. Martinez is an 78-year-old female, she is in bed, does not seems to be in any distress. HEENT: Mucosa is pink and moist. Anicteric. Acyanotic. Neck: Supple. Chest: Air entry is bilaterally reduced. A few crackles posteriorly and some distant wheezing, especially on the right side. Cardiovascular: Irregularly, irregular, seems to be slightly tachycardic. GI: Abdomen is soft, distended, but nontender. Bowel sounds present. Extremities: No pedal edema. SUPERINTENDENT MAINTENANCE: The patient is awake, alert, and oriented. There is no focal neurologic deficit. LABORATORY DATA: Chemistry is reviewed. Sodium is 134, potassium is 4.3, chloride 96, bicarb is 24, creatinine is down to 1.2, BUN is also down to 28. The patient's Is and Os, show urine output was about 480. She is currently positive balance of 2526. ASSESSMENT: 1. Dyspnea on presentation secondary to congestive heart failure, with preserved ejection fraction and multifocal pneumonia. 2. Left lung multifocal pneumonia. The patient is on ceftriaxone and azithromycin, today is day 4 on ceftriaxone. 3. Chronic atrial fibrillation. The patient went into RVR 3 days ago, her heart rate continues to be on the high end. We are going to add digoxin to her current regimen for better rate control. 4. Acute on chronic kidney disease. Creatinine continues to decrease. The patient's urine output is adequate. I think she is now well euvolemic, so we are going to discontinue the IV fluids. 5. Constipation, improving. cc: Narciso Hinton MD
[2019-06-07] MEDS ORDERED: FLEET ENEMA PR ONE (14:11)
--- NOTE | 2019-06-07 15:42 | NEPHROLOGY PROGRESS NOTE ---
DATE: 06/07/2019 SUBJECTIVE: She states she feels better today. She has been able to eat. No vomiting. OBJECTIVE: Vital Signs: Blood pressure 123/61, heart rate 86, respirations 17, afebrile. General: No acute distress. Skin: Warm and dry. Neck: Neck veins are not distended. Heart: Regular. Lungs: Equal. Abdomen: Soft, nontender. Extremities: Minimal edema. IMPRESSION: Acute kidney injury. Resolving. Electrolytes/acid base acceptable. I will sign off at this time but if I can be of further assistance, please do hesitate to call. cc: Davi Frances MD
[2019-06-07] MEDS: MILK OF MAGNESIA PO SCH ×2 (16:55→17:02)
[2019-06-07] MEDS ORDERED: NORCO-5 PO ONE ×2 (19:32→21:25)
[2019-06-07] MEDS: ZOFRAN IV PRN (20:06)
[2019-06-07] MEDS ORDERED: MORPHINE IV ONE (21:16)
[2019-06-07] MEDS: DOXYCYCLINE PO SCH (21:51)
[2019-06-08] MEDS: XOPENEX NEB INH SCH ×6 (03:10→23:19)
[2019-06-08] MEDS ORDERED: NORCO-7.5 PO PRN (04:02)
[2019-06-08] MEDS: HUMULIN R SUBQ SCH ×4 (05:59→20:44)
[2019-06-08] MEDS: MILK OF MAGNESIA PO SCH ×2 (05:59→17:24)
[2019-06-08 06:09] LABS: ALBUMIN 3.2 g/dL (3.5-5.0); CALCIUM 8.3 mg/dL (8.8-10.2); CREATININE 1.5 mg/dL (0.5-0.9); PHOSPHORUS 2.4 mg/dL (2.7-4.5); POTASSIUM 5.1 mmol/L (3.5-5.1)
--- NOTE | 2019-06-08 07:09 | Diag Imaging Result Doc PS360 ---
EXAM: CHEST-PORTABLE 06/08/2019 HISTORY: dyspnea TECHNIQUE: AP portable at 0535 COMMENT: There is cardiomegaly. The inspiration is less optimal than on 06/03/2019. There is an opacity in the lingula partially silhouetting the left heart border which was also present on 06/03/2019. There is some platelike atelectasis in the right upper lobe and left lower lobe. The latter was also present previously. IMPRESSION: Increased right atelectasis. Otherwise stable. Electronically signed by Michael Call 06/08/2019 7:07 AM
[2019-06-08] MEDS: CARDIZEM CD PO SCH (09:03)
[2019-06-08] MEDS: MIRALAX PO SCH ×2 (09:03→22:12)
[2019-06-08] MEDS: DOXYCYCLINE PO SCH ×2 (09:03→20:44)
[2019-06-08] MEDS: LANOXIN PO SCH (09:04)
[2019-06-08] MEDS: TAMBOCOR PO SCH ×2 (09:04→20:44)
[2019-06-08] MEDS: ELIQUIS PO SCH ×2 (09:04→20:44)
--- NOTE | 2019-06-08 11:32 | PROGRESS NOTE ---
DATE: 06/08/2019 SUBJECTIVE: This morning Ms. Martinez refers to be doing a whole lot better. No more rash on herself and she is itching less. OBJECTIVE: Vital signs: Blood pressure is 130/46, pulse of 98, respiration is 18, temperature 98.7 degrees, the patient is saturating 98%. General: Ms. Martinez is an 78-year-old elderly female. She is in bed, no distress. HEENT: Mucosa is pink and moist. Anicteric. Acyanotic. Neck: Supple. Chest: Good air entry bilaterally. Few crackles in the posterior lung doss. Cardiovascular: Regular rate and rhythm. Abdomen: Soft, globally distended, but nontender. Bowel sounds present. Extremities: No pedal edema. Skin: No more pruritic rash. Intakes and Outputs: Urine output was 250 from yesterday. The patient had 1 bowel movement documented yesterday. Musculoskeletal: There is some tenderness in mobilizing the right shoulder. ASSESSMENT: 1. Dyspnea on presentation, improved. 2. Left lung multifocal pneumonia. Patient is currently on doxycycline. 3. Chronic atrial fibrillation which went into rapid ventricular response during the hospital course. Medication has been titrated. Cardiology is on board. 4. Acute on chronic kidney disease. 5. Constipation, improving. 6. Allergic reaction. Unsure if this was due to ceftriaxone or azithromycin. Both antimicrobials were discontinued. 7. Congestive heart failure with preserved ejection fraction, stable. 8. Right shoulder pain after a fall. The patient does not seem to have any broken bones. She has a remote history of right shoulder capsulitis/tendinitis. We are going to get an x-ray and also consult her bone doctor (Dr. Valerio) to see her tomorrow morning. Patient is on p.r.n. pain medication. 9. Generalized weakness and deconditioning. During the hospital course, the patient has been evaluated by Physical Therapy. She was able to do only 3 feet this morning. We would recommend that Ms. Martinez goes to rehabilitation to continue with strengthening her physical strength. We will consult the social media intern for that. cc: Narciso Hinton MD
--- NOTE | 2019-06-08 14:05 | Diag Imaging Result Doc PS360 ---
EXAM: SHOULDER-RIGHT 06/08/2019 HISTORY: trauma to right shoulder TECHNIQUE: AP portable, two views at 1356 COMMENT: There are degenerative changes in the acromioclavicular joint. There is no evidence of acute fracture or dislocation. IMPRESSION: No acute bony abnormality. Osteoarthritis. Electronically signed by Michael Call 06/08/2019 2:03 PM
[2019-06-09] MEDS: TYLENOL PO PRN ×2 (00:31→22:52)
[2019-06-09] MEDS: XOPENEX NEB INH SCH ×6 (05:13→23:01)
[2019-06-09 05:56] LABS: BASO# 0.01 X1000 (0.0-0.2); BASO% 0.1 % (0.0-0.8); EOS# 0.19 X1000 (0.0-0.7); EOS% 2.5 % (0.0-10.0); HEMATOCRIT 29.9 % (37.0-47.0); HEMOGLOBIN 9.3 g/dL (12.0-16.0); IMM GRAN# 0.02 X1000 (0.0-0.04); IMM GRAN% 0.3 % (0.0-0.5); LYMPH# 0.69 X1000 (1.2-3.4); LYMPH% 8.9 % (20.5-51.1); MCH 30.1 PG (27-31); MCHC 31.1 g/dL (33-37); MCV 96.8 FL (81-99); MONO# 0.67 X1000 (0.11-0.59); MONO% 8.7 % (1.7-9.3); MPV 9.7 FL (7.4-10.4); NEUT# 6.14 X1000 (1.4-6.5); NEUT% 79.5 % (42.2-75.2); PLT 298 X1000 (130-400); RBC 3.09 XMIL (4.2-5.4); RDW 12.8 % (11.5-14.5); WBC 7.72 X1000 (4.8-10.8)
[2019-06-09 06:11] LABS: ALBUMIN 3.1 g/dL (3.5-5.0); CALCIUM 8.4 mg/dL (8.8-10.2); CREATININE 1.5 mg/dL (0.5-0.9); PHOSPHORUS 3.8 mg/dL (2.7-4.5)
[2019-06-09] MEDS: MILK OF MAGNESIA PO SCH ×2 (06:47→18:38)
[2019-06-09] MEDS: HUMULIN R SUBQ SCH ×4 (06:47→22:44)
[2019-06-09] MEDS: DOXYCYCLINE PO SCH ×2 (09:37→22:43)
[2019-06-09] MEDS: MIRALAX PO SCH ×2 (09:38→22:43)
[2019-06-09] MEDS: TAMBOCOR PO SCH ×2 (09:38→22:43)
[2019-06-09] MEDS: CARDIZEM CD PO SCH (09:38)
[2019-06-09] MEDS: ELIQUIS PO SCH ×2 (09:38→22:43)
[2019-06-09] MEDS: LANOXIN PO SCH (09:38)
[2019-06-09] MEDS ORDERED: MARCAINE 0.5% INJ ONE (10:11)
[2019-06-09] MEDS ORDERED: DEPO-MEDROL IM ONE (10:11)
--- NOTE | 2019-06-09 13:59 | PROGRESS NOTE ---
DATE: 06/09/2019 SUBJECTIVE: This morning, Ms. Martinez refers to be doing much better. She still is complaining of some pains in her lower extremities, and she could hardly walk. OBJECTIVE: Vital signs: Blood pressure is 118/54, pulse of 97, respiration is 20, temperature is 98.7 degrees, the patient is saturating 97%. General: Ms. Martinez is an 78-year-old elderly female. She is in bed. No distress. HEENT: Mucosa is pink and moist. Anicteric. Acyanotic. Neck: Supple. Chest: Good air entry bilaterally, a few dry crackles in the posterior lung doss. Cardiovascular: Irregularly irregular, but rate controlled. Gastrointestinal: Abdomen is soft, globally distended, but nontender. Bowel sounds present. Extremities: No pedal edema. Central Nervous System: Patient is awake, alert, oriented. The patient has very good power in both lower extremities. Sensation is completely intact to pinprick sensation. She is able to dorsiflex and plantar flex without any difficulties. She has bilateral scars on the knees consistent with knees surgeries before. She also has normal reflexes in both lower extremities. LABORATORY DATA: CBC reviewed reveals a normocytic anemia with normal WBC and normal platelets. Chemistry is also reviewed; creatinine is 1.5 which is pretty much the same as yesterday. CURRENT MEDICATIONS: Have all been reviewed. No changes. ASSESSMENT: 1. Dyspnea on presentation secondary to a combination of pneumonia and congestive heart failure, resolved. 2. Left lung with multifocal pneumonia. Patient is currently on doxycycline. She was started on some Septra, ceftriaxone, and azithromycin at one point; however, she had some allergic reactions to those medications, so they were discontinued. 3. Chronic atrial fibrillation which went into rapid ventricular response during the hospital course. Medication has been titrated. Cardiology is on board. 4. Acute on chronic kidney disease, stable. 5. Constipation, improving. 6. Allergy reaction during the hospital course. Unsure if it was due to the ceftriaxone or the azithromycin or both. They have been discontinued. 7. Decompensated congestive heart failure with preserved ejection fraction on presentation, improved. 8. Right shoulder pain. The patient has a history of osteoarthritis and some tendinitis. Dr. Valerio has been consulted. 9. Generalized weakness and deconditioning. Physical Therapy has been consulted. 10. Feet pain with unremarkable neurological exams. Patient seems to be neurovascularly intact. It appears to be related to myopathy from just deconditioning. We will advise patient to participate with physical therapy. 11. Chronic cough. Patient gives history of chronic cough, which seems to have gotten slightly worse during the hospital course. I think we will continue with the current antimicrobial therapy for the pneumonia. At some point in the future, patient will need to follow up with Pulmonary Medicine to rule out any other potential cause of this chronic cough. DISPOSITION: Ms. Martinez is awaiting rehabilitation placement. Once that is confirmed, she is medically stable to be discharged to continue with her physical uatsdin. cc: Narciso Hinton MD
--- NOTE | 2019-06-09 14:13 | CONSULTATION ---
DATE OF CONSULTATION: 06/09/2019 CHIEF COMPLAINT: Right shoulder pain. CLINICAL HISTORY: The patient is a pleasant, 78-year-old female who has had a chronic history of pain and discomfort of the right shoulder. She was evaluated in the office after a fall last year. She did receive an injection at that time and that did give some relief. She has had some recurrent pain and discomfort. She was admitted to the hospital on 06/02/2019 with acute congestive heart failure exacerbation and history of diabetes mellitus type 2, chronic atrial fibrillation, and hypertension. Orthopedic consultation was requested in regards to her right shoulder. PAST MEDICAL HISTORY: Hypertension, atrial fibrillation, diabetes mellitus type 2, hyperlipidemia. PAST SURGICAL HISTORY: Back surgery, bilateral carpal tunnel surgery, bilateral total knee arthroplasty, cholecystectomy. HOME MEDICATIONS: Eliquis 5 mg p.o. b.i.d., flecainide 100 mg p.o. b.i.d., losartan/hydrochlorothiazide 100/12.5 mg p.o. daily, metformin 500 mg p.o. daily, omeprazole 20 mg p.o. daily, pravastatin 40 mg p.o. daily, sertraline 50 mg p.o. daily, spironolactone 25 mg p.o. daily, Synthroid 50 mcg p.o. daily, Singulair 10 mg p.o. daily. PHYSICAL EXAMINATION: Patient is awake, alert, and cooperative with exam. Her right shoulder has diffuse tenderness to palpation at the anterior and lateral acromion. She has positive impingement, positive discomfort with gentle movement of the shoulder with forward elevation, weakness on rotator strength testing, and pain. DIAGNOSTIC DATA: X-rays were reviewed from 06/08/2019 which revealed some degenerative change of the AC joint. No evidence of acute abnormality. IMPRESSION: Right chronic rotator cuff tear, and acromioclavicular arthritis. PLAN: At this point, discussed treatment options with the patient. Given the patient's discomfort, would recommend to proceed with subacromial corticosteroid injection. The patient tolerated the procedure well. Use right upper extremity as tolerated. She is stable from an orthopedic standpoint. I will be available if needed. cc: Jose Valerio MD MTDD
[2019-06-10] MEDS: XOPENEX NEB INH SCH ×6 (03:49→23:16)
[2019-06-10 06:22] LABS: CALCIUM 8.7 mg/dL (8.8-10.2); CREATININE 1.2 mg/dL (0.5-0.9); PHOSPHORUS 4.9 mg/dL (2.7-4.5); POTASSIUM 5.3 mmol/L (3.5-5.1)
[2019-06-10] MEDS: HUMULIN R SUBQ SCH ×4 (06:45→22:00)
[2019-06-10] MEDS: MILK OF MAGNESIA PO SCH ×2 (06:56→19:00)
[2019-06-10] MEDS: MIRALAX PO SCH ×2 (08:16→22:00)
[2019-06-10] MEDS: TAMBOCOR PO SCH ×2 (08:18→22:01)
[2019-06-10] MEDS: LANOXIN PO SCH (08:18)
[2019-06-10] MEDS: DOXYCYCLINE PO SCH ×2 (08:19→22:02)
[2019-06-10] MEDS: ELIQUIS PO SCH ×2 (08:19→22:01)
[2019-06-10] MEDS: CARDIZEM CD PO SCH (08:19)
[2019-06-10] MEDS: TYLENOL PO PRN ×2 (08:22→22:00)
--- NOTE | 2019-06-10 16:06 | PROGRESS NOTE ---
DATE: 06/10/2019 SUBJECTIVE: She has no major complaints. She is doing well. OBJECTIVE: Vital Signs: Blood pressure 127/54, heart rate of 83, respiratory 18, temperature 98.7 degrees, 97% on 2 L. Cardiovascular: Regular rate and rhythm. Pulmonary: Bilateral breath sounds clear to auscultation. Gastrointestinal: Soft, nontender, nondistended. Bowel sounds are positive. PROBLEM LIST: 1. Acute respiratory failure due to pneumonia. 2. Left lung multifocal pneumonia. She is on doxycycline alone. She had a lot of allergic issues with other types of antibiotics previously. 3. Chronic atrial fibrillation. Stable on current medications, which include Cardizem, digoxin, and flecainide. 4. Congestive heart failure. That also appears to be overall stabilized. DISPOSITION: I anticipate discharge to rehabilitation tomorrow. We have gotten approval so we are going to progress with that tomorrow. cc: Jason Irwin MD
[2019-06-10] MEDS: ZOFRAN IV PRN (23:05)
[2019-06-11] MEDS: XOPENEX NEB INH SCH ×3 (04:12→11:45)
[2019-06-11] MEDS: MILK OF MAGNESIA PO SCH (05:20)
[2019-06-11] MEDS: HUMULIN R SUBQ SCH ×2 (06:46→13:46)
[2019-06-11] MEDS: CARDIZEM CD PO SCH (11:16)
[2019-06-11] MEDS: DOXYCYCLINE PO SCH (11:16)
[2019-06-11] MEDS: ELIQUIS PO SCH (11:17)
[2019-06-11] MEDS: TAMBOCOR PO SCH (11:17)
[2019-06-11] MEDS: LANOXIN PO SCH (11:17)
[2019-06-11] MEDS: MIRALAX PO SCH (11:18)
--- NOTE | 2019-06-11 11:21 | DISCHARGE SUMMARY ---
ADMISSION DATE: 06/02/2019 DISCHARGE DATE: 06/11/2019 ADMISSION DIAGNOSES: 1. Acute on chronic systolic congestive heart failure. 2. Diabetes mellitus, type 2. 3. Chronic atrial fibrillation. 4. Hypertension. DISCHARGE DIAGNOSES: 1. Acute respiratory failure due to pneumonia. 2. Left lung multifocal pneumonia. 3. Chronic atrial fibrillation. 4. Acute on chronic systolic congestive heart failure, compensated. CONSULTATIONS: 1. Janet Valerio MD, was consulted for right shoulder pain. 2. Catarino Beverly MD, was consulted for congestive heart failure. 3. Davi Frances MD. SURGERIES AND PROCEDURES: On 06/09/2019 Dr. Valerio performed subacromial corticosteroid injection on the right shoulder. HOSPITAL COURSE: On 06/02/2019 Kami Martinez an 78-year-old female with history of hypertension, atrial fibrillation, and diabetes presented to the emergency department with several days' history of worsening shortness of breath along with a cough. She had worsening shortness of breath with mild exertion and had recently been treated for pneumonia, but felt like she never got any improvement. She presented with acute on chronic systolic congestive heart failure. Was given IV Lasix due to her presenting symptoms. She was admitted. Cardiology was consulted. She was resumed on her Eliquis for her atrial fibrillation. Echocardiogram was ordered she was continued on diuresis. Echocardiogram showed a normal ejection fraction of 65%, did show a little mild pulmonary hypertension with a systolic pressure of 41 mmHg, and no diastolic dysfunction. The left atrium was moderately enlarged. Had a chest CT that revealed multilobar pneumonia which was worse on the left. She did also have some acute kidney injury, which resolved while she was here. The renal ultrasound was negative for any acute findings. She was seen by Dr. Beverly on the 03 of June, who recommended limiting diuresis, discontinuing her thiazide diuretic, and starting a low-dose diltiazem as tolerated. He wanted to recommend conservative cardiovascular management overall. She was on IV antibiotic therapy for the pneumonia. It actually looks like she had a chronic kidney disease stage 3B and maybe some mild acute kidney injury on top of that, but it did resolve. Went ahead and got Dr. Frances to see her and he felt like she was actually on the dry side and started her on IV fluids. She continued on the Rocephin and Zithromax for the pneumonia. On the 04 of June although she has chronic atrial fibrillation, she did have a spell of rapid ventricular response and had to be temporarily initiated on a Cardizem drip which was titrated off at some point. She had constipation while she is here. That also resolved. Had some shoulder pain on the right. There were no acute findings on that, other than she has osteoarthritis. She had some weakness and physical deconditioning and got a little physical therapy while she was in here. Apparently, she had a fall. That is why she had right shoulder pain. There are no fractures. Remote history of tendonitis and capsulitis of the right shoulder. Dr. Valerio was asked to see her. She was started on p.r.n. pain medicine. Dr. Valerio saw her, and that was on the . He recommended subacromial corticosteroid injection. After that, he was not needed anymore. Everything was improving. Medication-ragueta, her antibiotics were changed to doxycycline, Septra at some point, but I believe she is just on doxycycline. DISCHARGE VITAL SIGNS: Temperature 98.0 degrees, heart rate 76, respiratory rate 24, blood pressure 125/65, O2 saturation 96% 2 L nasal cannula. DIAGNOSTIC STUDIES: White blood cells 7000, hemoglobin 9, hematocrit 29, platelet count 290,000. Sodium 133, potassium 5.3, BUN 23, creatinine is 1.2, glucose 157, calcium 8.7, phosphorus 4.9, albumin 3.0. Blood cultures were negative. On 06/02/2019, had a chest x-ray: Cardiomegaly, mild prominent vascular suggesting pulmonary edema. Echocardiogram: Ejection fraction 65%. No diastolic dysfunction. Moderately enlarged left atrium. Pulmonary systolic pressure of 41. Chest CT showed multilobar pneumonia, worse on the left. Renal ultrasound was negative for any acute findings. Had a chest x-ray on the that was improving. Chest x-ray on the : Increased right atelectasis. Otherwise, it was stable. A shoulder x-ray on the right on the was osteoarthritis. Nothing acute. EKG on the : Sinus rhythm, 1st-degree AV block, rate was 66. Had a repeat. It was still sinus rhythm with a 1st-degree on the . She was showing sinus tachycardia. Rate was 129. Another one on the showed atrial fibrillation with RVR and that rate was 114. Another one on the 8th showed atrial fibrillation, rate controlled at 72. DISCHARGE MEDICATIONS: 1. Eliquis 5 mg p.o. twice daily. 2. Estradiol 10 mcg vaginal twice a week. 3. Flecainide acetate 100 mg p.o. daily. 4. Metformin ER 500 mg p.o. daily. 5. Hyzaar 100/12.5 mg 1 tablet p.o. daily. 6. Synthroid 50 mcg p.o. daily. 7. Montelukast sodium 10 mg p.o. daily. 8. Mirabegron 25 mg p.o. daily. 9. Omeprazole 20 mg p.o. daily. 10. Pravastatin 40 mg p.o. daily. 11. Sertraline 50 mg p.o. daily. 12. Spironolactone 25 mg p.o. daily. 13. Tylenol Arthritis 650 mg p.o. twice daily, 2 in the morning, 2 at bedtime. 14. Diltiazem 180 mg p.o. daily. 15. Doxycycline 100 mg p.o. twice daily. 16. Digoxin 125 mcg p.o. daily. 17. MiraLAX 17 g p.o. twice daily. DISCHARGE DIET: Heart healthy. DISCHARGE ACTIVITY: As tolerated per Physical Therapy. DISCHARGE PHYSICIAN FOLLOW-UP: 1. Lucio Campos MD. 2. Jose Valerio MD. 3. Catarino Beverly MD. DISCHARGE INSTRUCTIONS: Notify MD for fever of 101 or above, chest pain, shortness of breath, swelling in her feet or ankles, weight gain of 3 pounds or more in a day. DISCHARGE DISPOSITION: [facility]. Dictated by ROSALIND Eisenberg for Jason Irwin MD cc: ROSALIND Eisenberg MD
[2019-06-11] MEDS ORDERED: TUSSIONEX LIQUID PO ONE (11:52)
[2019-06-11 12:08] VITALS: BP 134/66
--- NOTE | 2019-06-11 13:11 | DISCHARGE SUMMARY ---
ADMISSION DATE: 06/02/2019 DISCHARGE DATE: 06/11/2019 Patient is doing well. She is complaining of a cough. The patient is stable, 125/65, heart rate 89, respiratory 15, temperature 98 degrees. Lungs are clear. No rales. She seems to be stable. We are discharging her on doxycycline and she will be going to rehab today. May need to consider giving her some cough medicine if she is not improved. She requested something strong. We will do the doxycycline for at least another [address] Hinton recommended at least another 5 to 7 days. Discharge condition is stable. Continue to follow closely. cc: Jason Irwin MD
== END 2019-06-11 14:47 | DRG 291 ==
LOC: 3N 13:54 → ED 13:54 → OBSVTOIN 23:32 → SUATTDRO 23:32 → 3S 06-04 21:14 → 4N 06-08 23:44
PROVIDERS: ATTEND Internal Medicine

== ENCOUNTER 2019-07-02 10:08 | Inpatient (IN) ==
--- NOTE | 2019-07-02 11:18 | EKG Report ---
Test Performed on : 07/02/2019 10:32:15 AM Test Reason : weakness Blood Pressure : / mmHG Vent. Rate : 049 BPM Atrial Rate : 049 BPM P-R Int : 246 ms QRS Dur : 120 ms QT Int : 444 ms P-R-T Axes : 079 -31 064 degrees QTc Int : 401 ms Sinus bradycardia. with 1st degree AV block. Left axis deviation Nonspecific intraventricular conduction delay Nonspecific ST and T wave abnormality Abnormal ECG When compared with ECG of 06-JUN-2019 00:00, Sinus rhythm. has replaced Atrial fibrillation. Nonspecific T wave abnormality now evident in Anterior leads Unconfirmed Result
[2019-07-02 11:27] LABS: URINE SOURCE CLEAN CATCH
[2019-07-02 11:32] LABS: BILIRUBIN URINE NEGATIVE (NEGATIVE); BLOOD URINE TRACE (NEGATIVE); COLOR YELLOW; GLUCOSE URINE NEGATIVE (NEGATIVE); KETONE URINE NEGATIVE (NEGATIVE); LEUKOCYTES URINE MODERATE (NEGATIVE); NITRITE URINE NEGATIVE (NEGATIVE); PH URINE 7.5; PROTEIN URINE NEGATIVE (NEGATIVE); SP GRAVITY URINE 1.016; TURBIDITY URINE CLEAR (CLEAR); UROBILINOGEN URINE NORMAL (NORMAL)
[2019-07-02 11:34] LABS: UR EPITHELIAL CELLS <10 /HPF (<10); URINE BACTERIA NEGATIVE /HPF; URINE RBC <10 /HPF (<10)
--- NOTE | 2019-07-02 11:35 | Diag Imaging Result Doc PS360 ---
CHEST-PORTABLE - 07/02/2019 INDICATION: weakness COMPARISON: 06/08/2019 FINDINGS: Stable quality assurance monitor final. Stable mild cardiomegaly. Pulmonary vascularity is top normal. There is significant improvement in the interstitial pulmonary edema. There is perhaps some trace residual edema or atelectasis at the lingula. No large pleural effusion. IMPRESSION: Significant improvement in the interstitial pulmonary edema. Electronically signed by Ernesto Perez 07/02/2019 11:33 AM
[2019-07-02] MEDS ORDERED: ROCEPHIN 1 GM in NS 50 ML IV ONE (11:36)
--- NOTE | 2019-07-02 11:40 | PROVIDER DOCUMENTATION ---
HPI-General Adult - General Chief Complaint: Weakness Stated Complaint: WEAKNESS, AFIB Time Seen by Provider: 07/02/19 10:44 Source: patient Allergies/Adverse Reactions: Patient Allergies Allergy/AdvReac Type Severity Reaction Status Date / Time ciprofloxacin [From Cipro] Allergy Unknown Verified 06/02/19 23:58 codeine Allergy Unknown Verified 06/06/19 12:06 nitrofurantoin Allergy Unknown Verified 06/02/19 23:58 [From Macrobid] oxytetracycline Allergy Unknown Verified 06/06/19 12:06 [From Terramycin] Tetanus Vaccines and Toxoid Allergy Unknown Verified 06/06/19 12:06 Home Medications: Home Medication List Medication Instructions Recorded Confirmed Last Taken Type Apixaban [Eliquis] 5 mg PO BID 06/02/19 07/02/19 06/01/19 08:00 History Estradiol 10 mcg VAG ORDERED 06/02/19 07/02/19 Unknown History Flecainide Acetate 100 mg PO BID 06/02/19 07/02/19 06/01/19 08:00 History Levothyroxine Sodium 50 mg PO DAILY 06/02/19 07/02/19 Unknown History Losartan/Hctz [Hyzaar 100/12.5 mg 1 tab PO DAILY 06/02/19 07/02/19 Unknown History Tab] Metformin E.r. [Glucophage Xr] 500 mg PO QPM 06/02/19 07/02/19 Unknown History Omeprazole 20 mg PO DAILY 06/02/19 07/02/19 Unknown History Pravastatin Sodium 40 mg PO QPM 06/02/19 07/02/19 Unknown History Sertraline HCl 50 mg PO QPM 06/02/19 07/02/19 Unknown History Spironolactone 25 mg PO DAILY 06/02/19 07/02/19 Unknown History Mirabegron [Myrbetriq] 25 mg PO DAILY 06/03/19 07/02/19 06/02/19 History Digoxin [Lanoxin] 125 microgm PO DAILY tab 06/10/19 07/02/19 Unknown Rx Diltiazem C.d. [Cardizem Cd] 180 mg PO DAILY cap 06/10/19 07/02/19 Unknown Rx - History of Present Illness -Gen Adult Nature of Presenting Problems: Pt. is 78 yof that presents with c/o weakness. Pt. reports she has a holter monitor on and was called and told to go to the ED. Pt. states after she does her morning routine of getting dressed, bathroom and taking medications that she is exhausted. She denies any other complaints. Location of Pain/Injury: reports: none. denies: head, face, mouth, neck, chest, upper extremity, hand(s), abdomen, back, pelvis, genitalia, lower extremity, feet, upper body, lower body, generalized, other Pain Radiation: reports: no radiation. denies: arm(s), back, buttocks, chest, epigastric, feet, groin, jaw, flank (L), legs (lower), LLQ, LUQ, neck, p eriumbilical, flank (R), RLQ, RUQ, shoulder(s), scapula, scrotal, sternal notch, suprapubic, legs (upper), urethral, vaginal, other Quality of Pain: reports: none. denies: aching, cramping, pressure, throbbing, tightness Severity: reports: mild. denies: moderate, severe Onset/Duration: reports: gradual, this morning Timing: reports: still present. denies: improving, resolved prior to arrival, g etting worse Context/Activities at Onset: reports: light activity. denies: none, moderate activity, vigorous activity, recent emotional stress, recent physical stress, recent trauma history, possible bad food, cold exposure, eating, out of country travel, rest, sleep, sexual activity, other Modifying Factors: improves with: nothing Associated Symptoms: reports: fatigue, weakness. denies: denies symptoms, anxiety, arm pain, back/neck pain, chest pain, constipation, cough, diaphoresis, diarrhea, dizziness, EENT symptoms, fever/chills, genitourinary problems, headaches, heartburn, joint pain, loss of appetite, malaise, muscle aches, sinus congestion/drainage, nausea, rash, seizure, shortness of breath, sensory/motor loss, pain with inspiration, swelling/mass in abdomen, syncope, vomiting, trouble walking, other Similar Symptoms Previously?: Yes Recently seen or treated by another doctor?: No Review of Systems - Adult - REVIEW OF SYSTEMS - ADULT Constitutional: reports: see lizz HARDEN. denies: chills, night sweats, weight gain Eyes: reports: no symptoms reported Ears, Nose, Mouth & Throat: reports: no symptoms reported Cardiovascular: reports: no symptoms reported Respiratory: reports: no symptoms reported Gastrointestinal: reports: no symptoms reported Genitourinary: reports: no symptoms reported Musculoskeletal: reports: no symptoms reported Integumentary: reports: no symptoms reported Neurological: reports: no symptoms reported Psychiatric: reports: no symptoms reported Past History - Adult - PAST MEDICAL HISTORY-ADULT Review of Records: reports: Old Records Reviewed, Nursing Assessment Review, Medications Reviewed, Social history reviewed & non-contributory. Major Childhood Illnesses: reports: denies history Cardiovascular: reports: HTN, other (loop recorder) Respiratory: reports: denies history Gastrointestinal: reports: GERD Obstetrical/Gynecological: reports: denies history Genitourinary: reports: denies history Musculoskeletal: reports: denies history Neurological: reports: denies history Endocrine/Immune: reports: Diabetes Other Conditions: reports: denies history - PRIOR SURGERIES/PROCEDURES Surgical/Procedure History: reports: cholecystectomy, , joint repla cement (tk) - IMMUNIZATION STATUS Childhood Immunizations: See Nurse Assessment Flu Vaccine: See Nurse Assessment - FAMILY HISTORY Family History: reviewed, not pertinent - SOCIAL HISTORY Smoking: denies Physical Exam-General - PHYSICAL EXAM-ADULT Initial Vital Signs Reviewed: Yes - CONSTITUTIONAL General Appearance: alert, no apparent distress. negative: anxious, slow to respond, obtunded, combative - EYES Eyes: PERRL/EOMI, pink conjunctivae - HEAD, EARS, NOSE, MOUTH & THROAT HENMT: normocephalic/atraumatic, moist mucous membranes - NECK Neck: non-tender, full range of motion, supple, normal inspection - RESPIRATORY Respiratory: lungs clear, normal breath sounds - CARDIOVASCULAR Cardiovascular: normal peripheral pulses, regular rate, rhythm, no edema, bradycardia. negative: extra beats, friction rub, irregularly irregular - GASTROINTESTINAL (ABDOMEN) Abdominal Exam: normal bowel sounds, non tender, soft - LYMPHATIC Lymphatic: no adenopathy - MUSCULOSKELETAL Back Exam: normal inspection, no CVA tenderness, no vertebral tenderness Extremity: normal range of motion, normal inspection. negative: deformity, erythema, inflammation, swelling, tenderness Peripheral Pulses: radial (R): 2+, radial (L): 2+ - SKIN Integumentary: normal color, normal turgor, warm/dry - NEUROLOGIC Neurologic: grossly normal, no motor/sensory deficits - PSYCHIATRIC Psych/Mental Status: normal mood/affect, normal thought content, normal thought process, oriented x 3. negative: anxious, paranoid, tearful Progress - PLAN OF CARE/RESULTS Progress/Plan/Lab Results: Vital Signs - 8 hr 07/02/19 10:19 Temperature 97.7 F Pulse Rate 52 L Respiratory Rate 12 Blood Pressure 161/62 O2 Sat by Pulse Oximetry 98 Laboratory Results - last 24 hr 07/02/19 11:00 Urine Source CLEAN CATCH Urine Color YELLOW Urine Turbidity CLEAR Urine pH 7.5 Ur Specific [place] 1.016 Urine Protein NEGATIVE Ur Glucose (Stick) NEGATIVE Ur Ketones (Stick) NEGATIVE Urine Blood TRACE A Urine Nitrite NEGATIVE Urine Bilirubin NEGATIVE Urobilinogen Dipstick NORMAL Urine Leukocytes MODERATE A Urine WBC (Auto) 10-20 A Urine RBC (Auto) <10 U Epithel Cells (Auto) <10 Urine Bacteria (Auto) NEGATIVE Orders Category Date Time Status Saline Loc NOW Care 07/02/19 11:12 Active CHEST-PORTABLE [RAD] Stat Exams 07/02/19 11:13 Completed CBC WITH ELECTRONIC DIFF [HEME] Stat Lab 07/02/19 11:13 Uncollected CK PROFILE [SP CHEM] Stat Lab 07/02/19 11:13 Uncollected COMPREHENSIVE METABOLIC PANEL [CHEM] Stat Lab 07/02/19 11:13 Uncollected TROPONIN T Stat Lab 07/02/19 11:13 Uncollected URINALYSIS W/POSS RFLX CULT [URINALYSIS] Stat Lab 07/02/19 11:00 Completed Rocephin 1 gm/Ns IV Now Med 07/02/19 11:36 Ordered CefTRIAXONE [Rocephin] 1 gm 0.9% Sodium Chloride Inj [Ns] 50 ml IV NOW EKG [EKG] Stat Ther 07/02/19 11:12 Draft Result Diagrams: 07/02/19 12:12 07/02/19 12:12 - XRAY 1 XRAY Study: Chest ([facility] - [address], [address], [place] [address] [facility] - [address] [place] [address] Department of Imaging Patient: VICKI GILMORE GALO Date: 07/02/19#: [id number] : 8ADM Status: REG ERAcct#: [id number] Age/Sex: 78/FRoom/Bed: Loc: ED Ordering Physician: Khloe Rosario Family Physician: Lucio Campos MD Reason for Procedure: weakness Signed CHEST-PORTABLE - 07/02/2019 INDICATION: weakness COMPARISON: 06/08/2019 FINDINGS: Stable monitoring analyst. Stable mild cardiomegaly. Pulmonary vascularity is top normal. There is significant improvement in the interstitial pulmonary edema. There is perhaps some trace residual edema or atelectasis at the lingula. No large pleural effusion. IMPRESSION: Significant improvement in the interstitial pulmonary edema. Electronically signed by Ernesto Perez 07/02/2019 11:33 AM 07/02/19 1133 Interpreting Physician: Ernesto Perez MD Dictated Date/Time: 07/02/19 1132 cc: Khloe Rosario; Lucio Campos MD) XRAY Interpretation: see note - CONSULTS/PCP/HOSPITALIST Notification #1 *Consult/PCP/Hospitalist*: Dr. Contreras Time Discussed: 14:05 Reason/Comments: Consult Consult Disposition: other (Observe patient coming off of digoxin and if needs a pacer then can xfer) #2 Consult: Dr. Salazar Time Discussed: 15:00 Reason/Comments: Consult #3 Consult: Vicenta Patricia Time Discussed: 15:05 Reason/Comments: Admission Consult Disposition: Will see in ED, Admit Departure - Departure Date of Disposition Decision: 07/02/19 Time of Disposition Decision: 15:01 DIAGNOSIS: Weakness, Bradycardia UTI (urinary tract infection) Qualifiers: Urinary tract infection type: acute cystitis Hematuria presence: without hematuria Qualified Code(s): N30.00 - Acute cystitis without hematuria Disposition: ADMITTED INPATIENT 09 Certified Medical Emergency: Emergent Condition: Stable Referrals and Follow-Ups: Lucio Campos MD [Primary Care Provider] - - Critical Care Note This patient required my direct & personal management of CC.: No Attestation - Physician/ FABIENNE Attestation Patient care was provided by Advanced Practice Provider:: Yes Advanced Practice Provider:: Khloe Rosario Advanced Practice Provider documentation review:: The Mid-level provider documentation, treatment plan and medical decision making was reviewed by the physician who agrees with all treatment and medical decision making by the MLP. The physician spent face to face time with patient:: No Advanced Practice Provider documentation review:: Supervising physician onsite and consulted in the evaluation and care of this patient. The physician did not have a face to face encounter with the patient.
[2019-07-02 12:25] LABS: EOS# 0.11 X1000 (0.0-0.7); EOS% 2.1 % (0.0-10.0); HEMATOCRIT 36.6 % (37.0-47.0); HEMOGLOBIN 11.7 g/dL (12.0-16.0); LYMPH# 1.05 X1000 (1.2-3.4); LYMPH% 20.1 % (20.5-51.1); MCV 96.8 FL (81-99); MONO# 0.39 X1000 (0.11-0.59); MONO% 7.5 % (1.7-9.3); MPV 9.8 FL (7.4-10.4); NEUT# 3.67 X1000 (1.4-6.5); NEUT% 70.3 % (42.2-75.2); PLT 140 X1000 (130-400); RBC 3.78 XMIL (4.2-5.4); WBC 5.22 X1000 (4.8-10.8)
[2019-07-02 12:40] LABS: ALB/GLOB RATIO 1.7; ALBUMIN 3.7 g/dL (3.5-5.0); CALCIUM 8.5 mg/dL (8.8-10.2); CREATININE 1.3 mg/dL (0.5-0.9); POTASSIUM 4.4 mmol/L (3.5-5.1); TOTAL BILIRUBIN 0.38 mg/dL (0.20-1.00); TOTAL PROTEIN 5.9 g/dL (6.3-8.3)
--- NOTE | 2019-07-02 12:56 | ED EKG INTERP ---
This chart was entered by Yesenia Nesbitt Scribe, acting as scribe for Jose Tobar MD. EKG Interpretation - EKG Time of EKG reading by physician:: 10:32 EKG Read and Signed by:: Jose Tobar EKG Interpretation (*Must complete 3 of following elements*): Abnormal (nonspecific ST and T wave abnormality.) Rate: 49 Rhythm: sinus bradycardia with 1st degree AV block [place]: left Comments: nonspecific intraventricular conduction delay; Attestation - Physician/ FABIENNE Attestation Patient care was provided by Advanced Practice Provider:: Yes Advanced Practice Provider:: Khloe Rosario Advanced Practice Provider documentation review:: The Mid-level provider documentation, treatment plan and medical decision making was reviewed by the physician who agrees with all treatment and medical decision making by the P. The physician spent face to face time with patient:: No Advanced Practice Provider documentation review:: Supervising physician onsite and consulted in the evaluation and care of this patient. The physician did not have a face to face encounter with the patient. This chart was documented by the indicated scribe, (Yesenia Nesbitt Scribe) and accurately reflects the services I performed and decisions made by me, Jose Tobar MD, as attested by the provider's signature.
[2019-07-02] MEDS: HUMALOG SUBQ SCH ×2 (18:36→20:59)
[2019-07-02] MEDS: NS 1,000 ML IV SCH (18:43)
--- NOTE | 2019-07-02 20:29 | HISTORY AND PHYSICAL ---
CHIEF COMPLAINT: Weakness and irregular heart rhythm. HISTORY OF PRESENT ILLNESS: This is an 78-year-old female with a history of hypertension, gastroesophageal reflux disease, diabetes mellitus, and dysrhythmia. She presented to the emergency room under the instructions of her loop recorder company. The patient stated that she received a call from the company stating that her heart rate was slow and she needed to go to the emergency room for evaluation. She did state that over the last week or two she has been more tired to the point of being unable to continue her ADLs without rest. On arrival to the emergency room she had heart rates of 50 to 60. Shiva Mcconnell the nurse practitioner in the emergency room discussed the patient with Dr. Contreras, the patient's pmp project manager in [place]. He reviewed her loop recorder events and reportedly said that the patient had heart rates as low as 38 with 2 and 3 second pauses. He recommended that she be admitted, we stop her digoxin and monitor her for 48 hours. PAST MEDICAL HISTORY: 1. Chronic systolic heart failure. 2. Diabetes mellitus type 2. 3. Chronic atrial fibrillation. 4. Hypertension. PAST SURGICAL HISTORY: Back surgery, carpal tunnel surgery, bilateral knee surgery, cholecystectomy, and implantation of a loop recorder. SOCIAL HISTORY: She denies any alcohol, tobacco, or illicit drug use. ALLERGIES: Ciprofloxacin, codeine, Macrobid, Terramycin and tetanus toxoid. HOME MEDICATIONS: A list will be obtained by the nursing staff and once verified will review and restarted as appropriate. REVIEW OF SYSTEMS: Discussed with the patient with pertinent positives stated in the HPI. She denied any syncope, dizziness, chest pain, palpitations, any shortness of breath, cough, fever, chills, night sweats, recent weight loss or weight gain, any nausea, vomiting, diarrhea, constipation, black or bloody vomitus or stools, hematuria, dysuria, frequency or urgency. PHYSICAL EXAMINATION: GENERAL: This is an 78-year-old female who is sitting on the stretcher in the emergency room in no distress. VITAL SIGNS: Blood pressure is 144/61 with a heart rate of 52, respirations are 18, temperature is 98.9 degrees with room air saturations at 98% to 100%. HEENT: Head is normocephalic, atraumatic. Mucous membranes are moist. NECK: Supple with trachea midline. She has no JVD. CARDIOVASCULAR: Irregularly irregular rate and rhythm. She is bradycardic. S1 and S2 appreciated. PULMONARY: Breath sounds are clear with no increased work of breathing noted. Chest rises and falls with symmetric respiration. GASTROINTESTINAL: Abdomen is soft, nontender, nondistended. Bowel sounds in all 4 quadrants. GENITOURINARY: She has no CVA or suprapubic tenderness. EXTREMITIES: No clubbing, cyanosis, or edema. Calves are nontender to palpation. NEUROLOGIC: She is alert oriented x3. SKIN: Warm and dry. LABORATORY DATA: WBC is 5.2 with hemoglobin 11.7, hematocrit 36.6, and platelets of 140,000. Sodium 138, potassium 4.4, BUN 23, creatinine 1.3 with a glucose of 280. Urinalysis reveals 2 to 20 microscopic white blood cells with moderate leukocytes. Urine culture is pending. Chest x-ray reveals significant improvement in interstitial edema. EKG revealed sinus bradycardia at a rate of 49 with a first-degree AV block. ASSESSMENT AND PLAN: 1. Sinus bradycardia. 2. Generalized weakness. 3. Cystitis. 4. Atrial fibrillation on chronic anticoagulation. 5. Hypothyroid. 6. Chronic renal insufficiency. 7. Diabetes mellitus type 2. PLAN: The patient will be admitted to the hospital. She will be placed on telemetry. The GANG RIDER in the emergency room did discuss the patient with Dr. Contreras, the patient's pmp project manager in [place]. We will hold digoxin as he recommended. will continue her sotalol. decrease her Cardizem to 30 mg q8. continue Rocephin and any further antibiotics will be culture driven. Patterned blood glucose with sliding scale insulin. We will check a stat TSH, repeat a BMP, CBC and magnesium in the morning. Plan discussed with Dr Lucia Further treatments pending hospital course. Patient seen and examined by me face to face, all the laboratory, vitals signs and images were reviewed, patient presented to the emergency department with symptomatic bradycardia, as per the patient she feels really bad when she gets her digoxin, she is also on Sotalol and Diltiazem, she will be admitted to [facility], telemetry, we will stop her digoxin as recommended, decrease her dose of Diltiazem, and continue with Sotalol, we might consult Cardiology department, I agree with the rest of the GANG RIDER's assessment and plan, Cameron Ramirez MD. Dictated by ROSALIND Lowe for Cameron Durbin MD cc: ROSALIND Lowe MD MTDD
[2019-07-02] MEDS: PRAVACHOL PO SCH (21:00)
[2019-07-02] MEDS: ZOLOFT PO SCH (21:00)
[2019-07-02] MEDS: TAMBOCOR PO SCH (21:00)
[2019-07-03] MEDS: HUMALOG SUBQ SCH ×4 (06:29→20:59)
[2019-07-03 07:40] LABS: BASO# 0.01 X1000 (0.0-0.2); BASO% 0.2 % (0.0-0.8); EOS# 0.13 X1000 (0.0-0.7); HEMATOCRIT 37.1 % (37.0-47.0); HEMOGLOBIN 11.6 g/dL (12.0-16.0); LYMPH# 0.88 X1000 (1.2-3.4); LYMPH% 20.1 % (20.5-51.1); MCH 30.5 PG (27-31); MCHC 31.3 g/dL (33-37); MCV 97.6 FL (81-99); MONO# 0.37 X1000 (0.11-0.59); MONO% 8.5 % (1.7-9.3); MPV 9.7 FL (7.4-10.4); NEUT# 2.98 X1000 (1.4-6.5); NEUT% 68.2 % (42.2-75.2); PLT 120 X1000 (130-400); RDW 14.2 % (11.5-14.5); WBC 4.37 X1000 (4.8-10.8)
[2019-07-03 08:01] LABS: CALCIUM 8.3 mg/dL (8.8-10.2); CREATININE 1.3 mg/dL (0.5-0.9); MAGNESIUM 1.6 mg/dL (1.5-2.7); POTASSIUM 4.1 mmol/L (3.5-5.1)
[2019-07-03] MEDS ORDERED: MAGNESIUM SULFATE 2 GM/S.W.I. 2 GM/50 ML IVPB IV ONE (09:00)
[2019-07-03] MEDS: NS 1,000 ML IV SCH ×2 (09:37→21:21)
[2019-07-03] MEDS: ELIQUIS PO SCH ×2 (09:37→21:16)
[2019-07-03] MEDS: PRILOSEC PO SCH (09:43)
[2019-07-03] MEDS: ALDACTONE PO SCH (09:43)
[2019-07-03] MEDS: SYNTHROID PO SCH (09:43)
[2019-07-03] MEDS: HYZAAR 100/12.5 MG TAB PO SCH (09:45)
[2019-07-03] MEDS: CARDIZEM PO SCH ×3 (09:58→21:16)
[2019-07-03] MEDS: TAMBOCOR PO SCH ×2 (09:58→21:15)
--- NOTE | 2019-07-03 11:05 | PROGRESS NOTE ---
DATE: 07/03/2019 SUBJECTIVE: This patient is feeling better today. No issues during the night. Her heart rate has been mostly in the 50s and 60s. She is not complaining of chest pain or dizziness. Her digoxin has been stopped. Digoxin level was 1.1. I also decreased a little bit the dose of the diltiazem, and I continued with her Tambocor. The patient is tolerating p.o. I will request physical therapy. OBJECTIVE: Vital Signs: Temperature 98 degrees, pulse 56, respiratory rate 20, blood pressure 142/67, and oxygen saturation 94% on room air. HEENT: Head normocephalic. No trauma. PERRLA. Neck: Supple. No JVD. No masses. Central trachea. Chest: Clear to auscultation. No wheezing. No rales. Cardiovascular: Irregular rate. Bradycardic. Abdomen: Soft, nontender, and nondistended. No hepatosplenomegaly. Extremities: No edema. No clubbing. No cyanosis. Neurological: The patient is alert and oriented x3. No focal deficits. LABORATORY: WBC 4.3, hemoglobin 11.6, hematocrit 37.1, and platelets 120,000. Sodium 140, potassium 4.1, chloride 103, bicarbonate 27, BUN 17, creatinine 1.3, glucose 107, calcium 8.3, and magnesium 1.6. ASSESSMENT AND PLAN: 1. Sinus bradycardia. I have stopped the digoxin and decreased the dose of the diltiazem. She is feeling better. We will continue with the same management. 2. Generalized weakness and physical deconditioning. I have requested physical therapy evaluation. 3. Cystitis. Urine culture has been negative so far. Continue with ceftriaxone. 4. Atrial fibrillation on chronic anticoagulation. Continue with same management. 5. Hypothyroidism. Continue levothyroxine. 6. CKD. This is her baseline. Continue with same management. 7. Type 2 diabetes, stable. I put her back on her home medications. 8. Apparently, she was reported to have some bradycardia with pauses of 2 seconds and 3 seconds not reported during this hospitalization, but we will monitor closely. cc: Cameron Durbin MD
[2019-07-03] MEDS ORDERED: ROCEPHIN 1 GM in NS 50 ML IV SCH (13:00)
[2019-07-03] MEDS ORDERED: GLUCOPHAGE XR PO SCH (21:00)
[2019-07-03] MEDS: PRAVACHOL PO SCH (21:16)
[2019-07-03] MEDS: ZOLOFT PO SCH (21:16)
[2019-07-04] MEDS: CARDIZEM PO SCH ×2 (05:29→13:29)
[2019-07-04] MEDS: PRILOSEC PO SCH ×2 (05:29→06:40)
[2019-07-04] MEDS: HUMALOG SUBQ SCH ×2 (07:19→11:30)
[2019-07-04 08:15] LABS: CALCIUM 8.5 mg/dL (8.8-10.2); CREATININE 1.3 mg/dL (0.5-0.9); POTASSIUM 4.9 mmol/L (3.5-5.1)
[2019-07-04] MEDS: TAMBOCOR PO SCH (08:56)
[2019-07-04] MEDS: ALDACTONE PO SCH (08:56)
[2019-07-04] MEDS: ELIQUIS PO SCH (08:56)
[2019-07-04] MEDS: SYNTHROID PO SCH (08:56)
[2019-07-04] MEDS: HYZAAR 100/12.5 MG TAB PO SCH (08:56)
[2019-07-04 12:30] VITALS: BP 146/49
--- NOTE | 2019-07-04 14:10 | PROGRESS NOTE ---
DATE: 07/04/2019 SUBJECTIVE: This patient is feeling better today. Her heart rate has been mostly in the 50s and 60s. She is not complaining of chest pain or shortness of breath. Mild headache. OBJECTIVE: Vital Signs: Temperature 98 degrees, pulse 58, respiratory rate 18, blood pressure 155/75, oxygen saturation 96 on room air. HEENT: Head normocephalic, no trauma. PERRLA. Neck: Supple. No JVD. No masses. Central trachea. Chest: Clear to auscultation. No wheezing. No rales. Cardiovascular: Irregular rhythm. Bradycardic. Abdomen: Soft, nontender, nondistended. No hepatosplenomegaly. Extremities: No edema, no clubbing, no cyanosis. Neurological examination: The patient is alert and oriented x3. No focal deficits. LABORATORY: Sodium 139, potassium 4.9, chloride 105, bicarbonate 25, BUN 14, creatinine 1.3, glucose 116, calcium 8.5. ASSESSMENT AND PLAN: 1. Sinus bradycardia. I have stopped her digoxin and decreased the dose of diltiazem. She is feeling better. Apparently, her heart rate decreased to the high 30s and she has a pause of 2 and 3 seconds. Then the loop recorder company called the patient and asked her to come to emergency. 2. Generalized weakness and physical deconditioning. Continue physical therapy. 3. Cystitis. Urine cultures negative so far. Continue with ceftriaxone. 4. Atrial fibrillation on anticoagulation. Continue with same management. 5. Hypothyroidism. Continue levothyroxine. 6. Chronic kidney disease. This is her baseline. Continue with same treatment. 7. Type 2 diabetes, stable. I put this patient back on her home medications. This patient is doing better, negative cultures. The heart rate has been in the 50s and 60s. She is not having symptoms. I will wait for Cardiology recommendations to see if this patient can be able to go home today. cc: Cameron Durbin MD
--- NOTE | 2019-07-04 14:35 | DISCHARGE SUMMARY ---
ADMISSION DATE: 07/02/2019 DISCHARGE DATE: 07/04/2019 DIAGNOSES: 1. Sinus bradycardia, improved after discontinuation of digoxin. 2. Generalized weakness and physical deconditioning. 3. Cystitis with a urine culture revealing mixed shaq. 4. Atrial fibrillation on chronic anticoagulation. 5. Hypothyroidism with TSH of 1.01. 6. Chronic kidney disease with a baseline creatinine of 1.2 to 1.8. DIGOXIN LEVEL 1.1 HOSPITAL COURSE: Ms. Martinez presented to the emergency room complaining of weakness with an irregular heart rhythm. After being called by the company of her implanted loop recorder stating that she needed to come to the emergency room for evaluation for a low heart rate and pauses. The ER physician did speak with Dr. Contreras, her EP physician in [place] who reviewed the loop recorder, and reported that she had heart rates as low as 38 with 2 and 3 second pauses. He recommend that we admit her for 48 hours, stop her digoxin, and if she improved then let her follow up with him on an outpatient basis to have further treatment. Heart rates increased to the 50-60 range after Digoxin was discontinued. and cardizem was decreased to 30mg po q8h. She denied any chest pain, palpitations, syncope or dizziness. She was evaluated by Physical Therapy who recommended home health physical therapy using a front wheel walker. Of note, the patient was discharged from [facility] 4 days prior to her admission after an 18-day rehab stay, and [facility] had arranged for home health. At this time the patient wished to continue with them. Thankfully she is ready for discharge. DISCHARGE VITAL SIGNS: Blood pressure is 155/75, heart rate 58, respirations 18, temperature 98 degrees, with room air saturations 96% to 97%. DISCHARGE PHYSICAL EXAMINATION: Cardiovascular: Irregularly irregular rate and rhythm. S1 and S2 appreciated. She is bradycardic. She has no lower extremity edema. Calves are nontender. Bilateral peripheral pulses palpable x4 extremities. Pulmonary: Breath sounds clear with no increased work of breathing noted. Gastrointestinal: Abdomen is soft, nontender, nondistended with bowel sounds in all 4 quadrants. Neurologic: Alert and oriented x3. Skin: Warm and dry. DISCHARGE MEDICATIONS: 1. Cardizem 30 mg p.o. q.8 hours. 2. Spironolactone 25 mg p.o. daily. 3. Zoloft 50 mg p.o. q.p.m. 4. Pravastatin 40 mg p.o. q.p.m. 5. Omeprazole 20 mg p.o. daily. 6. Myrbetriq 25 mg p.o. daily. 7. Levothyroxine 50 mcg p.o. daily. 8. Losartan/hydrochlorothiazide 100/12.5 one daily. 9. Metformin ER 500 mg p.o. at bedtime. 10. Flecainide 100 mg p.o. b.i.d. 11. Eliquis 5 mg p.o. b.i.d. FOLLOW-UP: 1. Dr. Contreras, she needs to call in the morning and schedule a follow up appointment. 2. Lucio Campos, she is to call and schedule appointment in next 1 to 2 weeks. She has been instructed to call to be seen sooner or return to the ER for any syncope dizziness chest pain, palpitations, shortness of breath, cough, temperature greater than 101, chills, nausea, vomiting, diarrhea, constipation, black or bloody vomitus or stools, hematuria, dysuria, frequency or urgency. DISPOSITION: She is being discharged home in stable condition with family members. TIME SPENT: This is a greater than 30 minute discharge. Dictated by ROSALIND Lowe for Cameron Durbin MD cc: ROSALIND Lowe MD [facility]
== END 2019-07-04 14:39 | disposition home health service (06) | DRG 309 ==
LOC: SUPCPDRO → ED 10:08 → 2N 16:30
PROVIDERS: ATTEND Internal Medicine